=== PATIENT | female | born 1970 | race Caucasian/White ===

== ENCOUNTER 2017-06-20 10:17 | Emergency (ER) | payer OTHER ==
[2017-06-20 11:00] LABS: ABS Basophils 0.1 10^3/ul (0-0.2); ABS Eosinophils 0.6 10^3/ul (0-0.6); ABS Lymphocytes 2.1 10^3/ul (1.0-4.8); ABS Monocytes 0.5 10^3/ul (0-0.8); ABS Neutrophils 3.1 10^3/ul (1.5-7.7); ABS Nucleated RBC 0 10^3/ul; Hematocrit 41 % (35-47); Hemoglobin 14.1 g/dl (12.0-16.0); Lymphocyte % 32.7 % (25-47); Mean Corpuscular HGB Conc 34 g/dl (31-36); Mean Corpuscular Hemoglobin 29 pg (27-31); Mean Corpuscular Volume 85 fL (80-97); Mean Platelet Volume 7 um3 (7.4-10.4); Nucleated Red Blood Cells % 0; Platelet Count 309 10^3/ul (150-450); Red Blood Count 4.86 10^6/ul (4.0-5.4); Red Cell Distribution Width 13 % (10.5-15); White Blood Count 6.3 10^3/ul (3.5-10.8)
[2017-06-20 11:20] LABS: EGFR Non-African American 91.2 (>60)
--- NOTE | 2017-06-20 12:45 | RAD ---
INDICATION: Chest pain. COMPARISON: There are no prior studies available for comparison. TECHNIQUE: A portable view of the chest was obtained. FINDINGS: Cardiac and mediastinal contours appear to be within normal limits. The lungs are clear. No pneumothorax or pleural effusion is seen. IMPRESSION: NO EVIDENCE FOR ACUTE DISEASE.
[2017-06-20 15:12] VITALS: BP 125/72
--- NOTE | 2017-06-20 16:04 | ED ---
Gilma Proctor Thomas, scribed for Jesse Beltran MD on 06/20/17 at 1134 . HPI Chest Pain - HPI Summary HPI Summary: The patient is a 46 year old female complaining of constant left-sided chest pain that began 3 days ago. The patient notes numbness in her left arm that began a day ago. The patient additionally complains of episodes of nausea, diaphoresis, and wheezing. She has orthopnea. - History of Current Complaint Chief Complaint: EDChestPainROMI Time Seen by Provider: 06/20/17 10:38 Hx Obtained From: Patient Onset/Duration: Started Days Ago - started 3 days ago Timing: Constant Current Severity: Moderate Pain Intensity: 8 Pain Scale Used: 0-10 Numeric Chest Pain Location: Mid Sternal Chest Pain Radiates: Yes Chest Pain Radiates To:: Arm Aggravating Factor(s): Deep Breaths Alleviating Factor(s): Upright Position Associated Signs and Symptoms: Positive: Numbness - in left arm - Allergy/Home Medications Allergies/Adverse Reactions: Allergies Allergy/AdvReac Type Severity Reaction Status Date / Time No Known Allergies Allergy Verified 08/23/15 13:58 Home Medications: Home Medications NK [No Home Medications Reported] 06/20/17 [History Confirmed 06/20/17] PMH/Surg Hx/FS Hx/Imm Hx Sensory History: Denies: Hx Legally Blind EENT History: Denies: Hx Deafness Infectious Disease History: No Infectious Disease History: Denies: Traveled Outside the [place] in Last 30 Days - Family History Known Family History: Positive: Other - COPD - Social History Alcohol Use: None Substance Use Type: Reports: None Smoking Status (MU): Unknown if Ever Smoked Review of Systems Positive: Skin Diaphoresis Positive: Chest Pain Positive: Other - wheezing Positive: Nausea Positive: Numbness - in left arm All Other Systems Reviewed And Are Negative: Yes Physical Exam - Summary Physical Exam Summary: Appearance: The patient is well-nourished in no acute distress and in no acute pain. Skin: The skin is warm and dry and skin color reflects adequate perfusion. HEENT: ~The head is normocephalic and atraumatic. The pupils are equal and reactive. The conjunctivae are clear and without drainage. ~Nares are patent and without drainage. ~Mouth reveals moist mucous membranes and the throat is without erythema and exudate. ~The external ears are intact. The ear canals are patent and without drainage. The tympanic membranes are intact. Neck: the neck is supple with full range of motion and non-tender. There are no carotid bruits. ~There is no neck vein distension. Respiratory: Chest is non-tender. ~Lungs are clear to auscultation and breath sounds are symmetrical and equal. Cardiovascular: Heart is regular rate and rhythm. ~There is no murmur or rub auscultated. ~~There is no peripheral edema and pulses are symmetrical and equal. Abdomen: The abdomen is soft and non-tender. ~There are normal bowel sounds heard in all four quadrants and there is no organomegaly palpated. Musculoskeletal: There is no back tenderness noted. ~Extremities are non-tender with full range of motion. ~There is good capillary refill. ~There is no peripheral edema or calf tenderness elicited. Neurological: Patient is alert and oriented to person, place and time. ~The patient has symmetrical motor strength in all four extremities. ~Cranial nerves are grossly intact. Deep tendon reflexes are symmetrical and equal in all four extremities. Psychiatric: The patient has an appropriate affect and does not exhibit any anxiety or depression. Triage Information Reviewed: Yes Vital Signs On Initial Exam: Initial Vitals Temp Pulse Resp BP Pulse Ox 97.6 F 95 16 154/81 93 06/20/17 10:18 06/20/17 10:18 06/20/17 10:18 06/20/17 10:18 06/20/17 10:18 Vital Signs Reviewed: Yes Diagnostics - Vital Signs Vital Signs Temp Pulse Resp BP Pulse Ox 06/20/17 10:18 97.6 F 95 16 154/81 93 - Laboratory Lab Results: Lab Results 06/20/17 06/20/17 06/20/17 Range/Units 10:41 10:41 10:41 WBC 6.3 (3.5-10.8) 10^3/ul RBC 4.86 (4.0-5.4) 10^6/ul Hgb 14.1 (12.0-16.0) g/dl Hct 41 (35-47) % MCV 85 (80-97) fL MCH 29 (27-31) pg MCHC 34 (31-36) g/dl RDW 13 (10.5-15) % Plt Count 309 (150-450) 10^3/ul MPV 7 L (7.4-10.4) um3 Neut % (Auto) 49.3 (38-83) % Lymph % (Auto) 32.7 (25-47) % Boyd % (Auto) 7.6 (1-9) % Eos % (Auto) 9.0 H (0-6) % Baso % (Auto) 1.4 (0-2) % Absolute Neuts (auto) 3.1 (1.5-7.7) 10^3/ul Absolute Lymphs (auto) 2.1 (1.0-4.8) 10^3/ul Absolute Monos (auto) 0.5 (0-0.8) 10^3/ul Absolute Eos (auto) 0.6 (0-0.6) 10^3/ul Absolute Basos (auto) 0.1 (0-0.2) 10^3/ul Absolute Nucleated RBC 0 10^3/ul Nucleated RBC % 0 Sodium 136 (133-145) mmol/L Potassium 4.3 (3.5-5.0) mmol/L Chloride 102 (101-111) mmol/L Carbon Dioxide 28 (22-32) mmol/L Anion Gap 6 (2-11) mmol/L BUN 14 (6-24) mg/dL Creatinine 0.69 (0.51-0.95) mg/dL Est GFR ( Amer) 117.3 (>60) Est GFR (Non-Af Amer) 91.2 (>60) BUN/Creatinine Ratio 20.3 H (8-20) Glucose 102 H (70-100) mg/dL Lactic Acid 0.9 (0.5-2.0) mmol/L Calcium 9.8 (8.6-10.3) mg/dL Total Bilirubin 0.70 (0.2-1.0) mg/dL AST 14 (13-39) U/L ALT 15 (7-52) U/L Alkaline Phosphatase 66 (34-104) U/L Troponin I 0.00 (<0.04) ng/mL Total Protein 7.6 (6.4-8.9) g/dL Albumin 4.5 (3.2-5.2) g/dL Globulin 3.1 (2-4) g/dL Albumin/Globulin Ratio 1.5 (1-3) Result Diagrams: 06/20/17 10:41 06/20/17 10:41 Lab Statement: Any lab studies that have been ordered have been reviewed, and results considered in the medical decision making process. - Radiology CXR Xray Interpretation: No Acute Changes - NO EVIDENCE FOR ACUTE DISEASE. Dr. Beltran has reviewed this report. Radiology Interpretation Completed By: Radiologist - EKG 1021 Cardiac Rate: NL - at 81 bpm EKG Rhythm: Sinus Rhythm ST Segment: Non-Specific EKG Interpretation: Non specific diffuse ST changes Chest Pain Course/Dx - Course Course Of Treatment: Ms. Boles presents with an atypical chest pain that has been consistently present for at least one day and intermittently for three. Her W/U here including two troponins and a d-dimer was negative and her ecg OK. I'm not sure of the etiology but she is in no immediate danger and I recommended that she F/U closely with her PMD. - Diagnoses Provider Diagnoses: Chest pain Discharge - Discharge Plan Condition: Stable Disposition: HOME Patient Education Materials: Chest Pain (ED) Referrals: Kelin Hayden MD [Primary Care Provider] - 3 Days Additional Instructions: Follow up with your primary care physician in three days. Return to the emergency department for any new or worsening symptoms. The documentation as recorded by the Gilma lewis Thomas accurately reflects the service I personally performed and the decisions made by me, Jesse Beltran MD.
== END 2017-06-20 15:12 | disposition home or self-care (01) ==
LOC: ED 10:17
DX: R07.89 Other chest pain (principal)
CPT/HCPCS: 36415; 71045; 80053; 83605; 84484; 85025; 85379; 87502; 93005; 99283

== ENCOUNTER 2017-06-28 17:20 | Inpatient (IN) | payer OTHER ==
[2017-06-28] MEDS ORDERED: Albuterol/Ipratropium NEB.SOL* Albuterol 2.5 MG/Ipratropium 0.5 MG 3 ML ONE (17:43)
[2017-06-28] MEDS ORDERED: Vancomycin(*) 1,250 MG in NS 0.9% 250 ML* 250 ML IVPB ONE (18:52)
[2017-06-28] MEDS ORDERED: Piperacillin/Tazobac ADVAN(*) 3.375 GM in NS 0.9% 100 ML* 100 ML IVPB ONE (18:52)
[2017-06-28] MEDS ORDERED: methylPREDNISolone 125 MG* 2 ML VIAL IV ONE (18:59)
[2017-06-28] MEDS ORDERED: Albuterol/Ipratropium NEB.SOL* Albuterol 2.5 MG/Ipratropium 0.5 MG 3 ML INH ONE ×3 (18:59→22:05)
[2017-06-28 19:31] LABS: ABS Basophils 0.1 10^3/ul (0-0.2); ABS Eosinophils 0.8 10^3/ul (0-0.6); ABS Lymphocytes 2.6 10^3/ul (1.0-4.8); ABS Monocytes 0.6 10^3/ul (0-0.8); ABS Neutrophils 3.5 10^3/ul (1.5-7.7); ABS Nucleated RBC 0 10^3/ul; Eosinophil % 10.7 % (0-6); Hematocrit 39 % (35-47); Hemoglobin 13.5 g/dl (12.0-16.0); Lymphocyte % 34.1 % (25-47); Mean Corpuscular HGB Conc 34 g/dl (31-36); Mean Corpuscular Hemoglobin 29 pg (27-31); Mean Corpuscular Volume 85 fL (80-97); Mean Platelet Volume 7 um3 (7.4-10.4); Nucleated Red Blood Cells % 0.1; Platelet Count 299 10^3/ul (150-450); Red Blood Count 4.63 10^6/ul (4.0-5.4); Red Cell Distribution Width 13 % (10.5-15); White Blood Count 7.6 10^3/ul (3.5-10.8)
[2017-06-28 19:51] LABS: EGFR Non-African American 74.7 (>60)
--- NOTE | 2017-06-28 20:24 | RAD ---
INDICATION: Chest pain, shortness of breath. COMPARISON: June 20, 2017 TECHNIQUE: Dual energy PA and routine lateral views of the chest were obtained. REPORT: Elevated lung volumes and both diffuse mild prominence of the interstitial markings and patchy rarefaction of the mid to upper lung zone interstitial markings. No focal pulmonary lesion, compelling alveolar consolidation, pleural effusion, pneumothorax. The heart, pulmonary vasculature, and mediastinal contours are unremarkable. IMPRESSION: Stigmata of obstructive lung disease. No acute pulmonary or cardiac process evident.
[2017-06-28] MEDS ORDERED: Iohexol 300* (CONTRAST) 10 ML SDV IV ONE (20:46)
--- NOTE | 2017-06-28 21:21 | RAD ---
INDICATION: Wheezing and shortness of breath. Aspirated a pill a few weeks ago. COMPARISON: June 28, 2017 radiographs. TECHNIQUE: Multidetector CT images were obtained from the lung apices to the upper abdomen with 80 mL Omnipaque 300 IV contrast. Multiplanar reformation. REPORT: Advanced emphysema most marked at the upper lung zones. No focal pulmonary lesion, alveolar consolidation, or focal air trapping evident. No conspicuous central endobronchial foreign body evident. Negative for pleural effusion or pneumothorax. Negative for thoracic lymphadenopathy, cardiomegaly, pericardial effusion. Normal diameter thoracic aorta. Negative for aortic dissection. Unremarkable limited images through the upper abdomen. Negative for thoracic fracture or suspicious focal osseous lesions. IMPRESSION: 1. Advanced emphysema. 2. No conspicuous central endobronchial foreign body, evidence for focal air trapping, or pneumonia.
--- NOTE | 2017-06-28 23:51 | HP ---
H&P (Free Text) History and Physical: PCP: Sari Hayden MD Date/Time: 06/28/2017 2350 CC: SOB HPI: Ms Boles is a 46YO female without chronic diagnoses who presents with onset of SOB ~10days ago a couple of days after aspirating an herbal supplement pill which she was mostly able to cough up. The SOB began to significantly accelerate 2 days ago. She has had audible wheezing, dry cough, chest tightngess , and mild sweats, but no F/C, chest pain, palpitations, N/V, diarrhea, or other issue. Steam/moist heat has helped briefly. She states she has always had a degree of SOB with exertion all the way back to school when she could not keep up with other children due to becoming "winded". She is a former smoker having quit ~10years ago. She was exposed to significant 2nd hand smoke by both parents. ED evaluation is most significant for a CT of the chest read as advanced emphysema far out of proportion to her degree of smoking/2nd hand- exposure giving rise to significant concern for previously undiagnosed alpha-1- antitrypsin deficiency. 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; full code status FamHx: Mother: alive at 76 w/ COPD & breast CA; Father: in his 60s 2nd COPD & alcoholism; Sisters x3: healthy; Brothers x2: healthy ROS: as above, otherwise reviewed and all were negative vitals: Vital Signs Temp 36.7 C 06/29/17 08:09 Pulse 96 06/29/17 08:09 Resp 14 06/29/17 08:09 BP 108/60 06/29/17 08:09 Pulse Ox 94 06/29/17 08:09 Constitutional: NAD, normally developed, overweight white female HEENM: atraumatic; sclera/conjunctiva: anicteric/clear; hearing: clinically intact; oropharynx: clear, mucosa moist Neck: soft tissue: non-tender; thyroid: normal Pulmonary: diminished B w/ scant mid- to end-expiratory wheeze, fair aeration, no accessory muscle use CV: RR/RR, normal S1S2, no carotid bruit, no jugular venous distention, 2+ B DP/ PT, no edema Abdominal: soft, non-distended, non-tender, no rebound/guarding/rigidity, normoactive bowel sounds, no hepatosplenomegaly or masses, no costovertebral angle tenderness Musculoskeletal: general: grossly intact, no tenderness to palpation; gait: stable Integumental: normal appearance and texture of exposed skin Psychiatric orientation: AA&O to PPS affect: calm mood: cooperative/pleasant eye contact: good content: reliable responses: timely insight: good Testing: Lab Results 06/28/17 06/28/17 06/28/17 Range/Units 19:00 19:00 19:00 WBC 7.6 (3.5-10.8) 10^3/ul RBC 4.63 (4.0-5.4) 10^6/ul Hgb 13.5 (12.0-16.0) g/dl Hct 39 (35-47) % MCV 85 (80-97) fL MCH 29 (27-31) pg MCHC 34 (31-36) g/dl RDW 13 (10.5-15) % Plt Count 299 (150-450) 10^3/ul MPV 7 L (7.4-10.4) um3 Neut % (Auto) 45.9 (38-83) % Lymph % (Auto) 34.1 (25-47) % Wilkin % (Auto) 7.9 H (0-7) % Eos % (Auto) 10.7 H (0-6) % Baso % (Auto) 1.4 (0-2) % Absolute Neuts (auto) 3.5 (1.5-7.7) 10^3/ul Absolute Lymphs (auto) 2.6 (1.0-4.8) 10^3/ul Absolute Monos (auto) 0.6 (0-0.8) 10^3/ul Absolute Eos (auto) 0.8 H (0-0.6) 10^3/ul Absolute Basos (auto) 0.1 (0-0.2) 10^3/ul Absolute Nucleated RBC 0 10^3/ul Nucleated RBC % 0.1 Sodium 138 (133-145) mmol/L Potassium 4.0 (3.5-5.0) mmol/L Chloride 101 (101-111) mmol/L Carbon Dioxide 29 (22-32) mmol/L Anion Gap 8 (2-11) mmol/L BUN 17 (6-24) mg/dL Creatinine 0.82 (0.51-0.95) mg/dL Est GFR ( Amer) 96.1 (>60) Est GFR (Non-Af Amer) 74.7 (>60) BUN/Creatinine Ratio 20.7 H (8-20) Glucose 94 (70-100) mg/dL Lactic Acid 1.3 (0.5-2.0) mmol/L Calcium 10.1 (8.6-10.3) mg/dL Total Bilirubin 0.50 (0.2-1.0) mg/dL AST 18 (13-39) U/L ALT 16 (7-52) U/L Alkaline Phosphatase 68 (34-104) U/L Troponin I 0.00 (<0.04) ng/mL B-Natriuretic Peptide ( - 100) pg/mL Total Protein 7.6 (6.4-8.9) g/dL Albumin 4.6 (3.2-5.2) g/dL Globulin 3.0 (2-4) g/dL Albumin/Globulin Ratio 1.5 (1-3) 06/28/17 06/28/17 06/29/17 Range/Units 19:00 21:55 07:02 WBC (3.5-10.8) 10^3/ul RBC (4.0-5.4) 10^6/ul Hgb (12.0-16.0) g/dl Hct (35-47) % MCV (80-97) fL MCH (27-31) pg MCHC (31-36) g/dl RDW (10.5-15) % Plt Count (150-450) 10^3/ul MPV (7.4-10.4) um3 Neut % (Auto) (38-83) % Lymph % (Auto) (25-47) % Wilkin % (Auto) (0-7) % Eos % (Auto) (0-6) % Baso % (Auto) (0-2) % Absolute Neuts (auto) (1.5-7.7) 10^3/ul Absolute Lymphs (auto) (1.0-4.8) 10^3/ul Absolute Monos (auto) (0-0.8) 10^3/ul Absolute Eos (auto) (0-0.6) 10^3/ul Absolute Basos (auto) (0-0.2) 10^3/ul Absolute Nucleated RBC 10^3/ul Nucleated RBC % Sodium (133-145) mmol/L Potassium (3.5-5.0) mmol/L Chloride (101-111) mmol/L Carbon Dioxide (22-32) mmol/L Anion Gap (2-11) mmol/L BUN (6-24) mg/dL Creatinine (0.51-0.95) mg/dL Est GFR ( Amer) (>60) Est GFR (Non-Af Amer) (>60) BUN/Creatinine Ratio (8-20) Glucose (70-100) mg/dL Lactic Acid (0.5-2.0) mmol/L Calcium (8.6-10.3) mg/dL Total Bilirubin (0.2-1.0) mg/dL AST (13-39) U/L ALT (7-52) U/L Alkaline Phosphatase (34-104) U/L Troponin I 0.00 0.00 (<0.04) ng/mL B-Natriuretic Peptide 7 ( - 100) pg/mL Total Protein (6.4-8.9) g/dL Albumin (3.2-5.2) g/dL Globulin (2-4) g/dL Albumin/Globulin Ratio (1-3) ECG, personally reviewed: NSR rate 87, no ischemia CXR, personally reviewed: IMPRESSION: Stigmata of obstructive lung disease. No acute pulmonary or cardiac process evident. CT chest WO, personally reviewed: IMPRESSION: 1. Advanced emphysema. 2. No conspicuous central endobronchial foreign body, evidence for focal air trapping, or pneumonia. Impression: 46F presenting with COPD exacerbation and finding of advanced emphysema far out of proportion to her smoking exposure giving rise to previously undiagnosed [id number] deficiency DIAGNOSIS & PLAN Primary COPD exacerbation w/ advanced emphysema, suspect [id number] deficiency : albuterol nebs Q4H routine, Q2H PRN : mometasone/formoterol : tiotropium : IV methylprednisolone : check AAT & phenotype : recommend pulmonology consult in the AM : supplemental oxygen : supportive care Admission Rational: inpatient for COPD exacerbation not likely to be adequately controlled w/i 48H to allow for discharge DVTp: INDRA Code Status: full
[2017-06-29] MEDS ORDERED: CMCS: Melatonin (NF) 3 MG TAB PO PRN (00:09)
[2017-06-29] MEDS ORDERED: Albuterol 2.5 MG/3 ML NEB.SOL* (0.083%) INH PRN (00:09)
[2017-06-29] MEDS ORDERED: Ondansetron INJ* 2 MG/ML VIAL IV PRN (00:10)
[2017-06-29] MEDS: Mometasone/Formoter 200/5 MDI INH SCH ×3 (00:28→20:12)
[2017-06-29] MEDS: Albuterol 2.5 MG/3 ML NEB.SOL* (0.083%) INH SCH ×6 (01:22→20:12)
[2017-06-29] MEDS: Omeprazole CAP* 20 MG PO SCH ×2 (05:22→11:36)
[2017-06-29] MEDS ORDERED: Spiriva Inhaler DEVICE* 1 EACH DEVICE INH ONE (09:00)
[2017-06-29] MEDS: Tiotropium CAP.INH* CAP.INH/18 MCG (USE ORDER SET !) INH SCH (09:45)
--- NOTE | 2017-06-29 11:24 | PN ---
Subjective Date of Service: 06/29/17 Interval History: Patient seen and examined. C/O cough, somewhat productive, no acute SOB at present. Denies chest pain, fever or chills. Objective Active Medications: Albuterol (Ventolin 2.5 Mg/3 Ml Neb.Yolanda*) 2.5 mg INH Q2H PRN PRN Reason: SOB/WHEEZING Albuterol (Ventolin 2.5 Mg/3 Ml Neb.Yolanda*) 2.5 mg INH Q4H [facility] Last Admin: 06/29/17 09:41 Dose: 2.5 mg Levofloxacin/Dextrose (Levaquin 500 Mg Ivpremix(*)) 500 mg in 100 mls @ 100 mls /hr IVPB Q24H [facility] Melatonin (Melatonin (Nf)) 3 mg PO BEDTIME PRN; Protocol PRN Reason: Sleep Methylprednisolone Sodium Succinate (Solu-Medrol 40 Mg) 40 mg IV Q8H [facility] Mometasone Furoate/Formoterol Fumar (Dulera 200/5 Mdi*) 2 puff INH BID [facility] Last Admin: 06/29/17 09:41 Dose: 2 puff Omeprazole (Prilosec Cap*) 20 mg PO DAILY@0600 [facility] Last Admin: 06/29/17 05:22 Dose: Not Given Ondansetron HCl (Zofran Inj*) 4 mg IV Q6H PRN PRN Reason: NAUSEA Tiotropium Hilger (Spiriva Cap.Inh*) 1 cap INH DAILY [facility] Last Admin: 06/29/17 09:45 Dose: 1 cap.inh Vital Signs - 8 hr 06/29/17 06/29/17 06/29/17 03:54 04:52 08:00 Temperature 97.7 F Pulse Rate 107 104 Respiratory 20 18 18 Rate Blood Pressure 101/44 (mmHg) O2 Sat by Pulse 94 99 Oximetry 06/29/17 08:09 Temperature 98.1 F Pulse Rate 96 Respiratory 14 Rate Blood Pressure 108/60 (mmHg) O2 Sat by Pulse 94 Oximetry Oxygen Devices in Use Now: None Appearance: Alert, NAD Eyes: No Scleral Icterus, PERRLA Ears/Nose/Mouth/Throat: NL Teeth, Lips, Gums, Mucous Membranes Moist Neck: NL Appearance and Movements; NL JVP, Trachea Midline Respiratory: Symmetrical Chest Expansion and Respiratory Effort, - - expiratory wheeze, some course breath sounds throughout, no consolidation Abdominal: NL Sounds; No Tenderness; No Distention Extremities: No Edema, No Clubbing, Cyanosis Skin: No Rash or Ulcers Neurological: Alert and Oriented x 3, NL Gait Nutrition: Taking PO's Result Diagrams: 06/28/17 19:00 06/28/17 19:00 Diagnostic Imaging: Patient Name: COLE TAMAYO Medical Record#: [id number] Ordering Physician: Kenneth Acuña MD Acct.#: [id number] : 1970 Age: 46 Sex: F Location: EMERGENCY DEPARTMENT Exam Date: 06/28/172032 ADM Status: REG ER Order Information: CT CHEST W Accession Number: [id number] CPT: 53364 INDICATION: Wheezing and shortness of breath. Aspirated a pill a few weeks ago. COMPARISON: June 28, 2017 radiographs. TECHNIQUE: Multidetector CT images were obtained from the lung apices to the upper abdomen with 80 mL Omnipaque 300 IV contrast. Multiplanar reformation. REPORT: Advanced emphysema most marked at the upper lung zones. No focal pulmonary lesion, alveolar consolidation, or focal air trapping evident. No conspicuous central endobronchial foreign body evident. Negative for pleural effusion or pneumothorax. Negative for thoracic lymphadenopathy, cardiomegaly, pericardial effusion. Normal diameter thoracic aorta. Negative for aortic dissection. Unremarkable limited images through the upper abdomen. Negative for thoracic fracture or suspicious focal osseous lesions. IMPRESSION: 1. Advanced emphysema. 2. No conspicuous central endobronchial foreign body, evidence for focal air trapping, or pneumonia. <Electronically signed by Estrada Lynch MD in OV> 06/28/172117 Dictated By: Estrada Lynch MD Dictated Date/Time: 06/28/172117 Transcribed Date/Time: 06/28/172111 Copy to: Assess/Plan/Problems-Billing Assessment: This is a 47 year old female patient with hx of progressive dyspnea, with findings positive for emphysema on CT, possibly r/o AAT deficiency. - Patient Problems (1) Shortness of breath Code(s): R06.02 - SHORTNESS OF BREATH SNOMED Code(s): 035040616 Comment: - COPD vs AAT deficiency causing emphesema - Will treat clinically for COPD with nebs, dulera, IV solumedrol, levaquin and spiriva - Dr. Scanlon consulted - Follow AAT testing (2) DVT prophylaxis Code(s): ENP7221 - SNOMED Code(s): 653656441 Comment: - low risk/ambulatory (3) Full code status Code(s): Z78.9 - OTHER SPECIFIED HEALTH STATUS SNOMED Code(s): 057233749 Status and Disposition: remain inpatient Counseling and/or Coordination of Care Minutes: coordinated with Dr. Scanlon
[2017-06-29] MEDS: Levofloxacin 500 MG IVPREMIX(* 500 MG/100 ML BAG IVPB SCH (12:30)
[2017-06-29] MEDS ORDERED: Melatonin (NF) ** ENTER STRENGTH IN LABEL DIRECTIONS PO SCH (21:00)
[2017-06-29] MEDS: CMCS: Melatonin (NF) 3 MG TAB PO SCH (21:24)
--- NOTE | 2017-06-29 21:57 | CONS ---
PULMONARY CONSULTATION REPORT: DATE OF CONSULT: 06/29/17 CONSULTATION REQUESTED BY: Angle Ferreira NP REASON FOR CONSULTATION: Evaluation of chronic obstructive pulmonary disease/ emphysema. HISTORY OF PRESENT ILLNESS: The patient is a 46-year-old female, former smoker , with no other significant past medical history who presents for evaluation of worsening shortness of breath over the past 10 days. The patient reports having mild shortness of breath on exertion for a very long time. She usually is limited walking up hill and working bending down. The patient reports that she aspirated on a herbal supplement pill recently, was able to cough up the pill. Her shortness of breath has worsened since that time. The patient also reports that she developed audible wheezing and chest tightness. The patient reports history of episodes of wheezing in the past. Denies GERD symptoms. The patient also reports dizziness associated with exertion. The patient denies chronic cough or sputum production. Has been having dry cough associated with sweats recently. Denies chest pain, palpitations, nausea, vomiting, diarrhea, urinary complaints, headaches, neck stiffness, recent travel or sick contacts. The patient also reported snoring, disruptive sleep, gasping arousals, and daytime fatigue. 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 Was former smoker, quit 10 years ago. Reports significant secondhand smoke exposure when she was young. 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 She also had a wood stove that she got rid of 2 years ago. The patient reports history of COPD and emphysema in the family. The patient is not aware of known history of liver problems. The patient was found to be significantly dyspneic upon evaluation in the emergency room, was also noted to be having significant wheezing on auscultation. She was admitted for management of acute bronchitis/COPD exacerbation. The patient had a chest x-ray and CT of the chest for further evaluation. I have personally reviewed chest x-ray and CT of the chest. The patient noted to have evidence of hyperinflation on chest x-ray. CT scan of the chest did reveal evidence of significant emphysematous changes bilaterally predominantly in the upper lung zones. No significant mediastinal or hilar adenopathy was noted. No evidence of pleural effusions was noted. No suspicious nodules or masses were noted. The patient was initiated on bronchodilators and steroids. The patient was also started on antibiotics for possible bronchitis. The patient reports slight improvement in shortness of breath. She, however, has been significantly dyspneic with minimal movements . She has not been hypoxemic and not required O2 supplementation. PAST MEDICAL HISTORY: No known past medical history, denied recurrent bronchitis or prior diagnosis of COPD. PAST SURGICAL HISTORY: Tonsillectomy, endometrial ablation, tubal ligation. MEDICATIONS: At home, the patient takes herbal supplements and vitamin supplements. ALLERGIES: No known drug allergies. FAMILY HISTORY: Mother alive at 76 with COPD and breast cancer. Father in 60s secondary to COPD and alcoholism. Sisters and 2 brothers are healthy. SOCIAL HISTORY: Former smoker, quit 10 years ago. No alcohol or recreational drug abuse. The patient denies significant smoking, 1 pack cigarette would last about a week. The patient, however, has significant secondhand smoke exposure. 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 REVIEW OF SYSTEMS: All 14 systems reviewed and as per HPI. PHYSICAL EXAM: Vital Signs: Temperature 98, pulse 97 beats per minute, respiratory rate 18, O2 sat 95% on room air, blood pressure 113/64. HEENT: Pupils equal, reactive to light. Mucous membranes moist. Lungs: Significant expiratory wheeze present bilaterally, diminished air entry bilaterally. No accessory respiratory muscle usage. Cardiovascular: S1 and S2 present, regular. Abdomen: Soft, nontender, nondistended. Bowel sounds present. Extremities: Normal range of motion. No edema. Skin: No rash or bruits. Neuro: No focal deficits. Lymphatic: No palpable cervical or supraclavicular adenopathy. DIAGNOSTIC STUDIES/LABORATORY DATA: WBC 7.6, hemoglobin 13.5, hematocrit 39, platelet count 299. Sodium 138, potassium 4.0, chloride 101, bicarb 29, BUN 17 , creatinine 0.8. Lactic acid 1.3. Troponin x3 within normal limits, LFTs within normal limits. CT scan of the chest as described above in HPI. EKG on admission showed evidence of normal sinus rhythm without any ST-T wave abnormalities. IMPRESSION AND RECOMMENDATIONS: 46-year-old female, former smoker, with chronic shortness of breath on exertion, admitted with worsening shortness of breath after an episode of choking while taking a pill, being treated for acute chronic obstructive pulmonary disease exacerbation/bronchitis. The patient with significant wheezing on auscultation. Agree with current management with IV steroids and empiric antibiotics. Continue with bronchodilators q.2 hours p.r.n. The patient was initiated on long-acting bronchodilators. She does have significant emphysematous changes on CT. Given more predominance in upper lung zones, likely secondary to the smoking and secondhand smoke exposure; however, we will check alpha-1 to ensure she does not have alpha-1 deficiency given significant emphysematous changes at early age. Chronic dyspnea on exertion secondary to smoking status. Will need PFTs and sleep study as outpatient. Continue with steroid taper once clinically improved. Thank you for allowing me to participate in the care of your patient. Will follow up with you. [id number]/[facility] #: [id number] [place]
[2017-06-30] MEDS: Albuterol 2.5 MG/3 ML NEB.SOL* (0.083%) INH SCH ×6 (00:55→20:25)
[2017-06-30] MEDS: Omeprazole CAP* 20 MG PO SCH (06:09)
[2017-06-30] MEDS: methylPREDNISolone SOD 40 MG* 1 ML VIAL IV SCH ×3 (06:09→21:52)
--- NOTE | 2017-06-30 08:25 | PN ---
Progress Note - Progress Note Date of Service: 06/30/17 - Pulm f/u note Note: Pt seen and examined at bedside. Reports feeling slightly better. C/o cough, having difficulty expectorating phleghm. Still feels tightness in chest Active Medications Generic Name Dose Route Start Last Admin Trade Name Freq PRN Reason Stop Dose Admin Albuterol 2.5 mg 06/29/17 00:09 Ventolin 2.5 Mg/3 Ml Neb.Yolanda* INH Q2H PRN SOB/WHEEZING Albuterol 2.5 mg 06/29/17 01:00 06/30/17 06:15 Ventolin 2.5 Mg/3 Ml Neb.Yolanda* INH Not Given Q4H [facility] Levofloxacin/Dextrose 500 mg in 100 mls @ 100 mls/hr 06/29/17 12:00 06/29/17 12:30 Levaquin 500 Mg Ivpremix(*) IVPB 100 mls/hr Q24H [facility] Administration Melatonin 3 mg 06/29/17 21:00 06/29/17 21:24 Melatonin (Nf) PO 3 mg BEDTIME [facility] Administration Protocol Methylprednisolone Sodium Succinate 40 mg 06/30/17 06:00 06/30/17 06:09 Solu-Medrol 40 Mg IV 40 mg Q8H [facility] Administration Mometasone Furoate/Formoterol Fumar 2 puff 06/29/17 01:00 06/29/17 20:12 Dulera 200/5 Mdi* INH 2 puff BID [facility] Administration Omeprazole 20 mg 06/29/17 06:00 06/30/17 06:09 Prilosec Cap* PO 20 mg DAILY@0600 [facility] Administration Ondansetron HCl 4 mg 06/29/17 00:10 Zofran Inj* IV Q6H PRN NAUSEA Tiotropium [place] 1 cap 06/29/17 09:00 06/29/17 09:45 Spiriva Cap.Inh* INH 1 cap.inh DAILY [facility] Administration Vital Signs Temp Pulse Resp BP Pulse Ox 97.6 F 78 16 112/68 95 06/30/17 07:36 06/30/17 07:36 06/30/17 07:36 06/30/17 07:36 06/30/17 07:36 O/E: Pt in NAD, alert, awake HEENT: PERRLA, No JVD Lungs: Wheeze + b/l, prolonged expectorated phase CVS: S1, S2+, regular Abd: Soft, BS+ Ext: No edema, normal ROM Neuro: No focal defecits Skin: Petechial rash, pt reports flee bites 06/28/17 06/28/17 06/28/17 19:00 19:00 19:00 WBC 7.6 RBC 4.63 Hgb 13.5 Hct 39 MCV 85 MCH 29 MCHC 34 RDW 13 Plt Count 299 MPV 7 L Neut % (Auto) 45.9 Lymph % (Auto) 34.1 [place] % (Auto) 7.9 H Eos % (Auto) 10.7 H Baso % (Auto) 1.4 Absolute Neuts (auto) 3.5 Absolute Lymphs (auto) 2.6 Absolute Monos (auto) 0.6 Absolute Eos (auto) 0.8 H Absolute Basos (auto) 0.1 Absolute Nucleated RBC 0 Nucleated RBC % 0.1 Sodium 138 Potassium 4.0 Chloride 101 Carbon Dioxide 29 Anion Gap 8 BUN 17 Creatinine 0.82 Est GFR ( Amer) 96.1 Est GFR (Non-Af Amer) 74.7 BUN/Creatinine Ratio 20.7 H Glucose 94 Lactic Acid 1.3 Calcium 10.1 Total Bilirubin 0.50 AST 18 ALT 16 Alkaline Phosphatase 68 Troponin I 0.00 B-Natriuretic Peptide Total Protein 7.6 Albumin 4.6 Globulin 3.0 Albumin/Globulin Ratio 1.5 06/28/17 06/28/17 06/29/17 19:00 21:55 07:02 WBC RBC Hgb Hct MCV MCH MCHC RDW Plt Count MPV Neut % (Auto) Lymph % (Auto) [place] % (Auto) Eos % (Auto) Baso % (Auto) Absolute Neuts (auto) Absolute Lymphs (auto) Absolute Monos (auto) Absolute Eos (auto) Absolute Basos (auto) Absolute Nucleated RBC Nucleated RBC % Sodium Potassium Chloride Carbon Dioxide Anion Gap BUN Creatinine Est GFR ( Amer) Est GFR (Non-Af Amer) BUN/Creatinine Ratio Glucose Lactic Acid Calcium Total Bilirubin AST ALT Alkaline Phosphatase Troponin I 0.00 0.00 B-Natriuretic Peptide 7 Total Protein Albumin Globulin Albumin/Globulin Ratio I/R: 46 y o f former smoker with second hand smoking history a/w worsening SOB, cough Acute bronchitis Significant emphysema on CT chest Pt improving slowly, still with wheeze Will c/w current dose of steroids Having thick phleghm- will order saline nebs c/w bronchodilators c/w Levaquin to complete 7 day course Not needing O2 at rest OOB to chair, ambulate as tolerated
[2017-06-30] MEDS: Sodium Chloride(INHALANT) 7%* 4 ML NEB.SOLN INH SCH ×2 (08:47→20:29)
[2017-06-30] MEDS: Tiotropium CAP.INH* CAP.INH/18 MCG (USE ORDER SET !) INH SCH (08:53)
[2017-06-30] MEDS: Mometasone/Formoter 200/5 MDI INH SCH ×2 (08:53→20:37)
[2017-06-30] MEDS: Levofloxacin 500 MG IVPREMIX(* 500 MG/100 ML BAG IVPB SCH (12:37)
--- NOTE | 2017-06-30 12:50 | PN ---
Subjective Date of Service: 06/30/17 Interval History: Patient seen and examined. Still with wheeze and SOB intermittently, but overall improving. Gets anxious when she feels like she can't breathe. Denies chest pain, no n/v, denies fever or chills. Objective Active Medications: Albuterol (Ventolin 2.5 Mg/3 Ml Neb.Yolanda*) 2.5 mg INH Q2H PRN PRN Reason: SOB/WHEEZING Albuterol (Ventolin 2.5 Mg/3 Ml Neb.Yolanda*) 2.5 mg INH Q4H [facility] Last Admin: 06/30/17 08:47 Dose: 2.5 mg Levofloxacin/Dextrose (Levaquin 500 Mg Ivpremix(*)) 500 mg in 100 mls @ 100 mls /hr IVPB Q24H [facility] Last Admin: 06/30/17 12:37 Dose: 100 mls/hr Melatonin (Melatonin (Nf)) 3 mg PO BEDTIME [facility] PRN Reason: Protocol Last Admin: 06/29/17 21:24 Dose: 3 mg Methylprednisolone Sodium Succinate (Solu-Medrol 40 Mg) 40 mg IV Q8H [facility] Last Admin: 06/30/17 06:09 Dose: 40 mg Mometasone Furoate/Formoterol Fumar (Dulera 200/5 Mdi*) 2 puff INH BID [facility] Last Admin: 06/30/17 08:53 Dose: 2 puff Omeprazole (Prilosec Cap*) 20 mg PO DAILY@0600 [facility] Last Admin: 06/30/17 06:09 Dose: 20 mg Ondansetron HCl (Zofran Inj*) 4 mg IV Q6H PRN PRN Reason: NAUSEA Sodium Chloride (Hyper-Shayne 7%*) 4 ml INH Q12HR [facility] Last Admin: 06/30/17 08:47 Dose: 4 ml Tiotropium [place] (Spiriva Cap.Inh*) 1 cap INH DAILY [facility] Last Admin: 06/30/17 08:53 Dose: 1 cap.inh Vital Signs - 8 hr 06/30/17 06/30/17 06/30/17 07:14 07:36 08:56 Temperature 97.6 F Pulse Rate 78 81 Respiratory 18 16 16 Rate Blood Pressure 112/68 (mmHg) O2 Sat by Pulse 95 92 Oximetry Oxygen Devices in Use Now: None Appearance: Alert, NAD Eyes: No Scleral Icterus, PERRLA Ears/Nose/Mouth/Throat: NL Teeth, Lips, Gums, Mucous Membranes Moist Neck: NL Appearance and Movements; NL JVP, Trachea Midline Respiratory: Symmetrical Chest Expansion and Respiratory Effort - bilateral insp /exp wheeze, no rhonchi or rales Cardiovascular: NL Sounds; No Murmurs; No JVD, RRR, No Edema Abdominal: NL Sounds; No Tenderness; No Distention Extremities: No Edema, No Clubbing, Cyanosis Neurological: Alert and Oriented x 3, NL Gait, NL Muscle Strength and Tone Nutrition: Taking PO's Result Diagrams: 06/28/17 19:00 06/28/17 19:00 Diagnostic Imaging: Patient Name: COLE TAMAYO Medical Record#: [id number] Ordering Physician: Kenneth Acuña MD Acct.#: [id number] : 1970 Age: 46 Sex: F Location: EMERGENCY DEPARTMENT Exam Date: 06/28/172032 ADM Status: REG ER Order Information: CT CHEST W Accession Number: [id number] CPT: 04312 INDICATION: Wheezing and shortness of breath. Aspirated a pill a few weeks ago. COMPARISON: June 28, 2017 radiographs. TECHNIQUE: Multidetector CT images were obtained from the lung apices to the upper abdomen with 80 mL Omnipaque 300 IV contrast. Multiplanar reformation. REPORT: Advanced emphysema most marked at the upper lung zones. No focal pulmonary lesion, alveolar consolidation, or focal air trapping evident. No conspicuous central endobronchial foreign body evident. Negative for pleural effusion or pneumothorax. Negative for thoracic lymphadenopathy, cardiomegaly, pericardial effusion. Normal diameter thoracic aorta. Negative for aortic dissection. Unremarkable limited images through the upper abdomen. Negative for thoracic fracture or suspicious focal osseous lesions. IMPRESSION: 1. Advanced emphysema. 2. No conspicuous central endobronchial foreign body, evidence for focal air trapping, or pneumonia. <Electronically signed by Estrada Lynch MD in [place]> 06/28/172117 Dictated By: Estrada Lynch MD Dictated Date/Time: 06/28/172117 Transcribed Date/Time: 06/28/172111 Copy to: Assess/Plan/Problems-Billing Assessment: This is a 47 year old female patient with hx of progressive dyspnea, with findings positive for emphysema on CT, possibly r/o AAT deficiency. - Patient Problems (1) Shortness of breath Code(s): R06.02 - SHORTNESS OF BREATH SNOMED Code(s): 992185776 Comment: - COPD vs AAT deficiency causing emphesema - Continue to treat for COPD with nebs, dulera, IV solumedrol, levaquin and spiriva at current doses - Dr. Scanlon following - Follow AAT testing (2) DVT prophylaxis Code(s): IEQ3335 - SNOMED Code(s): 189354532 Comment: - low risk/ambulatory (3) Full code status Code(s): Z78.9 - OTHER SPECIFIED HEALTH STATUS SNOMED Code(s): 683546756 Status and Disposition: remain inpatient for IV steroids. Likely DC Tuesday
[2017-06-30] MEDS: CMCS: Melatonin (NF) 3 MG TAB PO SCH (21:52)
[2017-07-01] MEDS: Albuterol 2.5 MG/3 ML NEB.SOL* (0.083%) INH SCH ×7 (01:04→19:38)
[2017-07-01] MEDS: Omeprazole CAP* 20 MG PO SCH (05:58)
[2017-07-01] MEDS: methylPREDNISolone SOD 40 MG* 1 ML VIAL IV SCH ×3 (05:58→21:00)
[2017-07-01] MEDS: Sodium Chloride(INHALANT) 7%* 4 ML NEB.SOLN INH SCH ×2 (09:33→19:38)
[2017-07-01] MEDS: Tiotropium CAP.INH* CAP.INH/18 MCG (USE ORDER SET !) INH SCH (09:35)
[2017-07-01] MEDS: Mometasone/Formoter 200/5 MDI INH SCH ×2 (09:36→19:38)
[2017-07-01 09:45] LABS: ABS Basophils 0 10^3/ul (0-0.2); ABS Eosinophils 0 10^3/ul (0-0.6); ABS Lymphocytes 1.1 10^3/ul (1.0-4.8); ABS Monocytes 0.2 10^3/ul (0-0.8); ABS Neutrophils 14.4 10^3/ul (1.5-7.7); ABS Nucleated RBC 0 10^3/ul; Eosinophil % 0 % (0-6); Hematocrit 40 % (35-47); Hemoglobin 13.7 g/dl (12.0-16.0); Lymphocyte % 7.2 % (25-47); Mean Corpuscular HGB Conc 34 g/dl (31-36); Mean Corpuscular Hemoglobin 29 pg (27-31); Mean Corpuscular Volume 85 fL (80-97); Mean Platelet Volume 7 um3 (7.4-10.4); Nucleated Red Blood Cells % 0.1; Platelet Count 322 10^3/ul (150-450); Red Blood Count 4.74 10^6/ul (4.0-5.4); Red Cell Distribution Width 14 % (10.5-15); White Blood Count 15.8 10^3/ul (3.5-10.8)
[2017-07-01 09:58] LABS: EGFR Non-African American 80.4 (>60)
--- NOTE | 2017-07-01 09:59 | PN ---
Subjective Date of Service: 07/01/17 Interval History: Patient seen and examined. Feels wheezy and tight this AM, currently having neb treatment with resp therapy. No acute overnight events. Has some sputum, small amount and thick. Continues with cough. Objective Active Medications: Albuterol (Ventolin 2.5 Mg/3 Ml Neb.Yolanda*) 2.5 mg INH Q2H PRN PRN Reason: SOB/WHEEZING Albuterol (Ventolin 2.5 Mg/3 Ml Neb.Yolanda*) 2.5 mg INH Q4H [facility] Last Admin: 07/01/17 09:32 Dose: 2.5 mg Levofloxacin/Dextrose (Levaquin 500 Mg Ivpremix(*)) 500 mg in 100 mls @ 100 mls /hr IVPB Q24H [facility] Last Admin: 06/30/17 12:37 Dose: 100 mls/hr Melatonin (Melatonin (Nf)) 3 mg PO BEDTIME [facility] PRN Reason: Protocol Last Admin: 06/30/17 21:52 Dose: 3 mg Methylprednisolone Sodium Succinate (Solu-Medrol 40 Mg) 40 mg IV Q8H [facility] Last Admin: 07/01/17 05:58 Dose: 40 mg Mometasone Furoate/Formoterol Fumar (Dulera 200/5 Mdi*) 2 puff INH BID [facility] Last Admin: 07/01/17 09:36 Dose: 2 puff Omeprazole (Prilosec Cap*) 20 mg PO DAILY@0600 [facility] Last Admin: 07/01/17 05:58 Dose: 20 mg Ondansetron HCl (Zofran Inj*) 4 mg IV Q6H PRN PRN Reason: NAUSEA Sodium Chloride (Hyper-Shayne 7%*) 4 ml INH Q12HR [facility] Last Admin: 07/01/17 09:33 Dose: 4 ml Tiotropium [place] (Spiriva Cap.Inh*) 1 cap INH DAILY [facility] Last Admin: 07/01/17 09:35 Dose: 1 cap.inh Vital Signs - 8 hr 07/01/17 07/01/17 07/01/17 03:43 06:09 07:41 Temperature 98.0 F 97.9 F Pulse Rate 82 98 87 Respiratory 16 18 17 Rate Blood Pressure 115/62 105/70 (mmHg) O2 Sat by Pulse 91 94 92 Oximetry 07/01/17 07/01/17 07:59 09:38 Temperature Pulse Rate 98 Respiratory 17 16 Rate Blood Pressure (mmHg) O2 Sat by Pulse 92 Oximetry Oxygen Devices in Use Now: None Appearance: Alert, NAD Eyes: No Scleral Icterus, PERRLA Ears/Nose/Mouth/Throat: Mucous Membranes Moist Neck: NL Appearance and Movements; NL JVP, Trachea Midline Respiratory: - - Wheeze bilaterally with rhonchi, no rales Cardiovascular: NL Sounds; No Murmurs; No JVD, RRR, No Edema Extremities: No Edema Skin: No Rash or Ulcers Neurological: Alert and Oriented x 3, NL Gait, NL Muscle Strength and Tone Nutrition: Taking PO's Result Diagrams: 06/28/17 19:00 06/28/17 19:00 Diagnostic Imaging: Patient Name: COLE TAMAYO Medical Record#: [id number] Ordering Physician: Kenneth Acuña MD Acct.#: [id number] : 1970 Age: 46 Sex: F Location: EMERGENCY DEPARTMENT Exam Date: 06/28/172032 ADM Status: REG ER Order Information: CT CHEST W Accession Number: [id number] CPT: 25803 INDICATION: Wheezing and shortness of breath. Aspirated a pill a few weeks ago. COMPARISON: June 28, 2017 radiographs. TECHNIQUE: Multidetector CT images were obtained from the lung apices to the upper abdomen with 80 mL Omnipaque 300 IV contrast. Multiplanar reformation. REPORT: Advanced emphysema most marked at the upper lung zones. No focal pulmonary lesion, alveolar consolidation, or focal air trapping evident. No conspicuous central endobronchial foreign body evident. Negative for pleural effusion or pneumothorax. Negative for thoracic lymphadenopathy, cardiomegaly, pericardial effusion. Normal diameter thoracic aorta. Negative for aortic dissection. Unremarkable limited images through the upper abdomen. Negative for thoracic fracture or suspicious focal osseous lesions. IMPRESSION: 1. Advanced emphysema. 2. No conspicuous central endobronchial foreign body, evidence for focal air trapping, or pneumonia. <Electronically signed by Estrada Lynch MD in [place]> 06/28/172117 Dictated By: Estrada Lynch MD Dictated Date/Time: 06/28/172117 Transcribed Date/Time: 06/28/172111 Copy to: Assess/Plan/Problems-Billing Assessment: This is a 47 year old female patient with hx of progressive dyspnea, with findings positive for emphysema on CT, possibly r/o AAT deficiency. - Patient Problems (1) Shortness of breath Code(s): R06.02 - SHORTNESS OF BREATH SNOMED Code(s): 611221585 Comment: - SHH=536, not likely AAT deficiency (would be <80) - Continue nebs, dulera, IV solumedrol, levaquin and spiriva at current doses - Dr. Scanlon following (2) DVT prophylaxis Code(s): [id number] - SNOMED Code(s): 446456945 Comment: - low risk/ambulatory (3) Full code status Code(s): Z78.9 - OTHER SPECIFIED HEALTH STATUS SNOMED Code(s): 242727421 Status and Disposition: remain inpatient for IV steroids and atbx. Likely DC Tuesday if clear by pulmonology. Counseling and/or Coordination of Care Minutes: coordinated with staff
--- NOTE | 2017-07-01 12:38 | PN ---
Progress Note - Progress Note Date of Service: 07/01/17 - Pulm f/u note Note: Pt seen and examined at bedside. Pt reports episode of SOB this am, attributes to not taking bronchodilator last night. Overall feels better. Is shaky from predniosone Active Medications Generic Name Dose Route Start Last Admin Trade Name Freq PRN Reason Stop Dose Admin Albuterol 2.5 mg 06/29/17 00:09 Ventolin 2.5 Mg/3 Ml Neb.Yolanda* INH Q2H PRN SOB/WHEEZING Albuterol 2.5 mg 06/29/17 01:00 07/01/17 09:32 Ventolin 2.5 Mg/3 Ml Neb.Yolanda* INH 2.5 mg Q4H [facility] Administration Levofloxacin/Dextrose 500 mg in 100 mls @ 100 mls/hr 06/29/17 12:00 06/30/17 12:37 Levaquin 500 Mg Ivpremix(*) IVPB 100 mls/hr Q24H [facility] Administration Melatonin 3 mg 06/29/17 21:00 06/30/17 21:52 Melatonin (Nf) PO 3 mg BEDTIME [facility] Administration Protocol Methylprednisolone Sodium Succinate 40 mg 06/30/17 06:00 07/01/17 05:58 Solu-Medrol 40 Mg IV 40 mg Q8H [facility] Administration Mometasone Furoate/Formoterol Fumar 2 puff 06/29/17 01:00 07/01/17 09:36 Dulera 200/5 Mdi* INH 2 puff BID [facility] Administration Omeprazole 20 mg 06/29/17 06:00 07/01/17 05:58 Prilosec Cap* PO 20 mg DAILY@0600 [facility] Administration Ondansetron HCl 4 mg 06/29/17 00:10 Zofran Inj* IV Q6H PRN NAUSEA Sodium Chloride 4 ml 06/30/17 09:00 07/01/17 09:33 Hyper-Shayne 7%* INH 4 ml Q12HR [facility] Administration Tiotropium [place] 1 cap 06/29/17 09:00 07/01/17 09:35 Spiriva Cap.Inh* INH 1 cap.inh DAILY [facility] Administration Vital Signs Temp Pulse Resp BP Pulse Ox 97.9 F 99 16 105/70 92 07/01/17 07:41 07/01/17 09:38 07/01/17 09:38 07/01/17 07:41 07/01/17 09:38 O/E: Pt in NAD, alert, awake HEENT: PERRLA, No JVD Lungs: Wheeze + b/l, prolonged expectorated phase CVS: S1, S2+, regular Abd: Soft, BS+ Ext: No edema, normal ROM Neuro: No focal defecits Skin: Petechial rash, pt reports flee bites Laboratory Results - last 24 hr 06/29/17 07/01/17 07/01/17 07:02 09:24 09:24 WBC 15.8 H RBC 4.74 Hgb 13.7 Hct 40 MCV 85 MCH 29 MCHC 34 RDW 14 Plt Count 322 MPV 7 L Neut % (Auto) 91.2 H Lymph % (Auto) 7.2 [place] % (Auto) 1.5 Eos % (Auto) 0 Baso % (Auto) 0.1 Absolute Neuts (auto) 14.4 H Absolute Lymphs (auto) 1.1 Absolute Monos (auto) 0.2 Absolute Eos (auto) 0 Absolute Basos (auto) 0 Absolute Nucleated RBC 0 Nucleated RBC % 0.1 Sodium 135 Potassium 4.1 Chloride 102 Carbon Dioxide 22 Anion Gap 11 BUN 16 Creatinine 0.77 Est GFR ( Amer) 103.3 Est GFR (Non-Af Amer) 80.4 BUN/Creatinine Ratio 20.8 H Glucose 164 H Calcium 9.9 [id number] 133 I/R: 46 y o f former smoker with second hand smoking history a/w worsening SOB, cough with Acute bronchitis/COPD exacerbation Significant emphysema on CT chest, alpha-1 negative Pt improving slowly, still with wheeze Is able to expectorate phleghm with hypertonic saline nebs Pt reproting shakiness, likely related to prednisone, Bl sugars also elevated Will c/w current dose of steroids given wheezing c/w bronchodilators c/w Levaquin to complete 7 day course Not needing O2 at rest OOB to chair, ambulate as tolerated
[2017-07-01] MEDS: Levofloxacin 500 MG IVPREMIX(* 500 MG/100 ML BAG IVPB SCH (13:09)
[2017-07-01] MEDS: CMCS: Melatonin (NF) 3 MG TAB PO SCH (21:00)
[2017-07-02] MEDS: Albuterol 2.5 MG/3 ML NEB.SOL* (0.083%) INH SCH ×4 (02:19→20:58)
[2017-07-02] MEDS: Omeprazole CAP* 20 MG PO SCH (06:41)
[2017-07-02] MEDS: methylPREDNISolone SOD 40 MG* 1 ML VIAL IV SCH ×2 (06:41→13:06)
[2017-07-02] MEDS: Sodium Chloride(INHALANT) 7%* 4 ML NEB.SOLN INH SCH ×2 (09:43→20:59)
[2017-07-02] MEDS: Mometasone/Formoter 200/5 MDI INH SCH ×2 (09:45→21:17)
[2017-07-02] MEDS: Tiotropium CAP.INH* CAP.INH/18 MCG (USE ORDER SET !) INH SCH (09:45)
[2017-07-02] MEDS: Levofloxacin 500 MG IVPREMIX(* 500 MG/100 ML BAG IVPB SCH (11:43)
--- NOTE | 2017-07-02 12:32 | PN ---
Progress Note - Progress Note Date of Service: 07/02/17 - Pulm f/u note Note: Pt seen and examined at bedside. Pt reports feeling better this am. Has been needing neb treatments every 4 hrs, having tightness and SOB if she doesnot receive treatments on time. Was able to cough some phleghm today. Active Medications Generic Name Dose Route Start Last Admin Trade Name Freq PRN Reason Stop Dose Admin Albuterol 2.5 mg 06/29/17 00:09 Ventolin 2.5 Mg/3 Ml Neb.Yolanda* INH Q2H PRN SOB/WHEEZING Albuterol 2.5 mg 07/01/17 21:00 07/02/17 09:44 Ventolin 2.5 Mg/3 Ml Neb.Yolanda* INH 2.5 mg [id number] AWAKE MORALES Administration Levofloxacin/Dextrose 500 mg in 100 mls @ 100 mls/hr 06/29/17 12:00 07/02/17 11:43 Levaquin 500 Mg Ivpremix(*) IVPB 100 mls/hr Q24H [facility] Administration Melatonin 3 mg 06/29/17 21:00 07/01/17 21:00 Melatonin (Nf) PO 3 mg BEDTIME M[facility]ALES Administration Protocol Methylprednisolone Sodium Succinate 40 mg 06/30/17 06:00 07/02/17 06:41 Solu-Medrol 40 Mg IV 40 mg Q8H [facility]AL[facility] Administration Mometasone Furoate/Formoterol Fumar 2 puff 06/29/17 01:00 07/02/17 09:45 Dulera 200/5 Mdi* INH 2 puff BID [facility] Administration Omeprazole 20 mg 06/29/17 06:00 07/02/17 06:41 Prilosec Cap* PO 20 mg DAILY@0600 [facility] Administration Ondansetron HCl 4 mg 06/29/17 00:10 Zofran Inj* IV Q6H PRN NAUSEA Sodium Chloride 4 ml 06/30/17 09:00 07/02/17 09:43 Hyper-Shayne 7%* INH 4 ml Q12HR [facility]ALES Administration Tiotropium [place] 1 cap 06/29/17 09:00 07/02/17 09:45 Spiriva Cap.Inh* INH 1 cap.inh DAILY [facility] Administration Vital Signs Temp Pulse Resp BP Pulse Ox 98.1 F 87 20 113/70 94 07/02/17 07:14 07/02/17 07:14 07/02/17 08:00 07/02/17 07:14 07/02/17 07:14 O/E: Pt in NAD, alert, awake, in good spirits HEENT: PERRLA, No JVD, mucus membranes moist Lungs: Wheeze + b/l, prolonged expectoratory phase, wheezing improved today CVS: S1, S2+, regular, no murmer Abd: Soft, BS+, NT Ext: No edema, normal ROM Neuro: No focal defecits Laboratory Results - last 24 hr 06/29/17 07/01/17 07:02 09:24 Sodium 135 Potassium 4.1 Chloride 102 Carbon Dioxide 22 Anion Gap 11 BUN 16 Creatinine 0.77 Est GFR ( Amer) 103.3 Est GFR (Non-Af Amer) 80.4 BUN/Creatinine Ratio 20.8 H Glucose 164 H Calcium 9.9 Kvvou-3-Udjscregvpi 123 Alpha-1-AT Phenotype Mm Vitamin B12 352 25-OH Vitamin D Total 24.8 I/R: 46 y o f former smoker with second hand smoking history a/w worsening SOB, cough Acute bronchitis/COPD exacerbation- improving slowly Significant emphysema on CT chest, alpha-1 negative Wheeze improved today Is able to expectorate phleghm with hypertonic saline nebs, had yellow thick phleghm this am Pt reporting shakiness, likely related to prednisone Will lower solumedrol dose today to 40mg q 12 hrs c/w bronchodilators q 4 hrs c/w Levaquin to complete 7 day course Not needing O2 at rest, will need to assess needs upon d/c Will need arrangement for nebulizer equipment at home upon d/c OOB to chair, ambulate as tolerated If pt is d/charissa over weeked, will f/u in pulm clinic in 2 weeks
--- NOTE | 2017-07-02 14:33 | PN ---
Subjective Date of Service: 07/02/17 Interval History: . Pt reports she feels better today but continues to require neb treatment every 4 hours. She continues to have wheezing, she does reports relief after the neb tx. No fevers or chills. Reports good appetite. Objective Active Medications: Albuterol (Ventolin 2.5 Mg/3 Ml Neb.Yolanda*) 2.5 mg INH Q2H PRN PRN Reason: SOB/WHEEZING Albuterol (Ventolin 2.5 Mg/3 Ml Neb.Yolanda*) 2.5 mg INH RT.[id number] AWAKE [facility] Last Admin: 07/02/17 13:36 Dose: 2.5 mg Levofloxacin/Dextrose (Levaquin 500 Mg Ivpremix(*)) 500 mg in 100 mls @ 100 mls /hr IVPB Q24H [facility] Last Admin: 07/02/17 11:43 Dose: 100 mls/hr Melatonin (Melatonin (Nf)) 3 mg PO BEDTIME [facility] PRN Reason: Protocol Last Admin: 07/01/17 21:00 Dose: 3 mg Methylprednisolone Sodium Succinate (Solu-Medrol 40 Mg) 40 mg IV Q12H [facility] Last Admin: 07/02/17 13:06 Dose: 40 mg Mometasone Furoate/Formoterol Fumar (Dulera 200/5 Mdi*) 2 puff INH BID [facility] Last Admin: 07/02/17 09:45 Dose: 2 puff Omeprazole (Prilosec Cap*) 20 mg PO DAILY@0600 [facility] Last Admin: 07/02/17 06:41 Dose: 20 mg Ondansetron HCl (Zofran Inj*) 4 mg IV Q6H PRN PRN Reason: NAUSEA Sodium Chloride (Hyper-[place]ayne 7%*) 4 ml INH Q12HR [facility] Last Admin: 07/02/17 09:43 Dose: 4 ml Tiotropium [place] (Spiriva Cap.Inh*) 1 cap INH DAILY [facility] Last Admin: 07/02/17 09:45 Dose: 1 cap.inh Vital Signs - 8 hr 07/02/17 07/02/17 07/02/17 07:14 08:00 11:03 Temperature 98.1 F 98.0 F Pulse Rate 87 104 Respiratory 16 20 18 Rate Blood Pressure 113/70 138/81 (mmHg) O2 Sat by Pulse 94 92 Oximetry Oxygen Devices in Use Now: None Appearance: 46 yo well developed female sitting up in bed in NAD A+O x3 Eyes: No Scleral Icterus, PERRLA Ears/Nose/Mouth/Throat: NL Teeth, Lips, Gums Respiratory: Symmetrical Chest Expansion and Respiratory Effort, - - exp wheezing bilaterally (mild), no dyspnea Cardiovascular: NL Sounds; No Murmurs; No JVD, RRR, No Edema Abdominal: NL Sounds; No Tenderness; No Distention Extremities: No Edema, No Clubbing, Cyanosis Skin: No Rash or Ulcers, No Nodules or Sclerosis Neurological: Alert and Oriented x 3, NL Sensation, NL Muscle Strength and Tone Lines/Tubes/Other Access: Clean, Dry and Intact Peripheral IV Nutrition: Taking PO's Result Diagrams: 07/01/17 09:24 07/01/17 09:24 Diagnostic Imaging: Patient Name: COLE TAMAYO Medical Record#: [id number] Ordering Physician: Kenneth Acuña MD Acct.#: [id number] : 1970 Age: 46 Sex: F Location: EMERGENCY DEPARTMENT Exam Date: 06/28/172032 ADM Status: REG ER Order Information: CT CHEST W Accession Number: [id number] CPT: 47398 INDICATION: Wheezing and shortness of breath. Aspirated a pill a few weeks ago. COMPARISON: June 28, 2017 radiographs. TECHNIQUE: Multidetector CT images were obtained from the lung apices to the upper abdomen with 80 mL Omnipaque 300 IV contrast. Multiplanar reformation. REPORT: Advanced emphysema most marked at the upper lung zones. No focal pulmonary lesion, alveolar consolidation, or focal air trapping evident. No conspicuous central endobronchial foreign body evident. Negative for pleural effusion or pneumothorax. Negative for thoracic lymphadenopathy, cardiomegaly, pericardial effusion. Normal diameter thoracic aorta. Negative for aortic dissection. Unremarkable limited images through the upper abdomen. Negative for thoracic fracture or suspicious focal osseous lesions. IMPRESSION: 1. Advanced emphysema. 2. No conspicuous central endobronchial foreign body, evidence for focal air trapping, or pneumonia. <Electronically signed by Estrada Lynch MD in [place]> 06/28/172117 Dictated By: Estrada Lynch MD Dictated Date/Time: 06/28/172117 Transcribed Date/Time: 06/28/172111 Copy to: Assess/Plan/Problems-Billing Assessment: This is a 47 year old female with distant hx of smoking in high school but reports second hand smoking history with progressive dyspnea, with findings positive for emphysema on CT with acute bronchitis/COPD exacerbation - Patient Problems (1) Shortness of breath Comment: - Acute bronchitis/COPD exacerbation. Slowly improving - Alpha-1 negative - Continue nebs, dulera, IV solumedrol, levaquin and spiriva at current doses - Dr. Scanlon following - Solumedrol lowered to 40 mg IV Q12, c/w bronchodilators. - Levaquin 7 day course. - Will need a nebulizer arranged at home. (2) Full code status (3) DVT prophylaxis Comment: - low risk/ambulatory Status and Disposition: remain inpatient for IV steroids and atbx. Likely DC Tuesday if clear by pulmonology.
[2017-07-02] MEDS: CMCS: Melatonin (NF) 3 MG TAB PO SCH (20:52)
[2017-07-03] MEDS: Albuterol 2.5 MG/3 ML NEB.SOL* (0.083%) INH SCH ×4 (01:22→19:32)
[2017-07-03] MEDS: methylPREDNISolone SOD 40 MG* 1 ML VIAL IV SCH ×2 (01:25→13:09)
[2017-07-03] MEDS: Omeprazole CAP* 20 MG PO SCH (06:18)
[2017-07-03] MEDS: Sodium Chloride(INHALANT) 7%* 4 ML NEB.SOLN INH SCH (07:35)
[2017-07-03] MEDS: Tiotropium CAP.INH* CAP.INH/18 MCG (USE ORDER SET !) INH SCH (07:35)
[2017-07-03] MEDS: Mometasone/Formoter 200/5 MDI INH SCH ×2 (07:35→19:32)
[2017-07-03] MEDS: Cholecalciferol TAB* 1000 UNITS PO SCH (08:11)
--- NOTE | 2017-07-03 13:19 | PN ---
Subjective Date of Service: 07/03/17 Interval History: Patient reports she continues to feel wheezy, tight chest and sob when coughing or ambulating. Walking O2 sat down to 88%. She does not feel like she can go home today. Is very teary during my visit with feeling stressed about this new diagnosis and continues to not feel well. No fevers or chills. Reports little sputum production. Objective Active Medications: Albuterol (Ventolin 2.5 Mg/3 Ml Neb.Yolanda*) 2.5 mg INH Q2H PRN PRN Reason: SOB/WHEEZING Albuterol (Ventolin 2.5 Mg/3 Ml Neb.Yolanda*) 2.5 mg INH [id number] AWAKE [facility] Last Admin: 07/03/17 12:08 Dose: 2.5 mg Cholecalciferol (Vitamin D Tab*) 2,000 units PO DAILY [facility] Last Admin: 07/03/17 08:11 Dose: 2,000 units Lactobacillus Rhamnosus (Culturelle*) 1 cap PO BID [facility] Levofloxacin (Levaquin Tab*) 500 mg PO Q24H [facility] Stop: 07/06/17 11:59 Melatonin (Melatonin (Nf)) 3 mg PO BEDTIME [facility] PRN Reason: Protocol Last Admin: 07/02/17 20:52 Dose: 3 mg Methylprednisolone Sodium Succinate (Solu-Medrol 40 Mg) 40 mg IV Q12H [facility] Last Admin: 07/03/17 13:09 Dose: 40 mg Mometasone Furoate/Formoterol Fumar (Dulera 200/5 Mdi*) 2 puff INH BID [facility] Last Admin: 07/03/17 07:35 Dose: 2 puff Omeprazole (Prilosec Cap*) 20 mg PO DAILY@0600 [facility] Last Admin: 07/03/17 06:18 Dose: 20 mg Ondansetron HCl (Zofran Inj*) 4 mg IV Q6H PRN PRN Reason: NAUSEA Tiotropium [place] (Spiriva Cap.Inh*) 1 cap INH DAILY [facility] Last Admin: 07/03/17 07:35 Dose: 1 cap.inh Vital Signs - 8 hr 07/03/17 07/03/17 07/03/17 07:38 07:46 07:56 Temperature 97.5 F Pulse Rate 80 80 88 Respiratory 16 16 18 Rate Blood Pressure 118/69 (mmHg) O2 Sat by Pulse 93 93 93 Oximetry 07/03/17 07/03/17 07/03/17 08:00 08:31 12:11 Temperature Pulse Rate 76 Respiratory 20 16 Rate Blood Pressure (mmHg) O2 Sat by Pulse 88 98 Oximetry Oxygen Devices in Use Now: None Appearance: well developed 46 yo female A+O x3; weepy Eyes: No Scleral Icterus, PERRLA Ears/Nose/Mouth/Throat: NL Teeth, Lips, Gums, Mucous Membranes Moist Neck: NL Appearance and Movements; NL JVP Respiratory: Symmetrical Chest Expansion and Respiratory Effort, - - expiratory wheezing throughout, good air flow b/l Cardiovascular: NL Sounds; No Murmurs; No JVD, RRR, No Edema Extremities: No Edema, No Clubbing, Cyanosis Skin: No Rash or Ulcers, No Nodules or Sclerosis Neurological: Alert and Oriented x 3, NL Sensation, NL Gait, NL Muscle Strength and Tone Lines/Tubes/Other Access: Clean, Dry and Intact Peripheral IV Nutrition: Taking PO's Result Diagrams: 07/01/17 09:24 07/01/17 09:24 Diagnostic Imaging: Patient Name: COLE TAMAYO Medical Record#: [id number] Ordering Physician: Kenneth Acuña MD Acct.#: [id number] : 1970 Age: 46 Sex: F Location: EMERGENCY DEPARTMENT Exam Date: 06/28/172032 ADM Status: REG ER Order Information: CT CHEST W Accession Number: [id number] CPT: 80276 INDICATION: Wheezing and shortness of breath. Aspirated a pill a few weeks ago. COMPARISON: June 28, 2017 radiographs. TECHNIQUE: Multidetector CT images were obtained from the lung apices to the upper abdomen with 80 mL Omnipaque 300 IV contrast. Multiplanar reformation. REPORT: Advanced emphysema most marked at the upper lung zones. No focal pulmonary lesion, alveolar consolidation, or focal air trapping evident. No conspicuous central endobronchial foreign body evident. Negative for pleural effusion or pneumothorax. Negative for thoracic lymphadenopathy, cardiomegaly, pericardial effusion. Normal diameter thoracic aorta. Negative for aortic dissection. Unremarkable limited images through the upper abdomen. Negative for thoracic fracture or suspicious focal osseous lesions. IMPRESSION: 1. Advanced emphysema. 2. No conspicuous central endobronchial foreign body, evidence for focal air trapping, or pneumonia. <Electronically signed by Estrada Lynch MD in [place]> 06/28/172117 Dictated By: Estrada Lynch MD Dictated Date/Time: 06/28/172117 Transcribed Date/Time: 06/28/172111 Copy to: Assess/Plan/Problems-Billing Assessment: This is a 47 year old female with distant hx of smoking in high school but reports second hand smoking history with progressive dyspnea, with findings positive for emphysema on CT with acute bronchitis/COPD exacerbation - Patient Problems (1) Shortness of breath Comment: - Acute bronchitis/COPD exacerbation. Slowly improving - Alpha-1 negative - Continue nebs, dulera, IV solumedrol, levaquin and spiriva at current doses - Dr. Scanlon following - Solumedrol lowered to 40 mg IV Q12, c/w bronchodilators. Will need taper at discharge - Levaquin 7 day course - switch to PO last dose 07/05 - Will need a nebulizer arranged at home and possible - may require oxygen at home. (2) Full code status (3) DVT prophylaxis Comment: - low risk/ambulatory Status and Disposition: remain inpatient for IV steroids and atbx. Possibly DC to home tomorrow if stable.
[2017-07-03] MEDS: Lactobacillus Acidophilu (GG)* 1 CAP CAP PO SCH (20:49)
[2017-07-03] MEDS: CMCS: Melatonin (NF) 3 MG TAB PO SCH (20:49)
[2017-07-04] MEDS: Albuterol 2.5 MG/3 ML NEB.SOL* (0.083%) INH SCH ×4 (00:32→20:40)
[2017-07-04] MEDS: Omeprazole CAP* 20 MG PO SCH (05:39)
[2017-07-04 05:58] LABS: Hematocrit 38 % (35-47); Hemoglobin 12.9 g/dl (12.0-16.0); Mean Corpuscular HGB Conc 34 g/dl (31-36); Mean Corpuscular Hemoglobin 29 pg (27-31); Mean Corpuscular Volume 86 fL (80-97); Mean Platelet Volume 7 um3 (7.4-10.4); Platelet Count 259 10^3/ul (150-450); Red Blood Count 4.42 10^6/ul (4.0-5.4); Red Cell Distribution Width 14 % (10.5-15); White Blood Count 10.2 10^3/ul (3.5-10.8)
[2017-07-04 06:12] LABS: EGFR Non-African American 68.9 (>60)
[2017-07-04 06:46] LABS: ABS Basophils 0 10^3/ul (0-0.2); ABS Eosinophils 0 10^3/ul (0-0.6); ABS Lymphocytes 2.7 10^3/ul (1.0-4.8); ABS Monocytes 0.9 10^3/ul (0-0.8); ABS Neutrophils 6.6 10^3/ul (1.5-7.7); ABS Nucleated RBC 0 10^3/ul; Eosinophil % 0.4 % (0-6); Lymphocyte % 26.3 % (25-47); Nucleated Red Blood Cells % 0.1
[2017-07-04] MEDS: Tiotropium CAP.INH* CAP.INH/18 MCG (USE ORDER SET !) INH SCH (07:38)
[2017-07-04] MEDS: Mometasone/Formoter 200/5 MDI INH SCH ×2 (07:38→20:39)
[2017-07-04] MEDS: predniSONE TAB* 20 MG PO SCH (09:09)
[2017-07-04] MEDS: Cholecalciferol TAB* 1000 UNITS PO SCH (09:09)
[2017-07-04] MEDS: Lactobacillus Acidophilu (GG)* 1 CAP CAP PO SCH ×2 (09:10→21:40)
--- NOTE | 2017-07-04 11:57 | PN ---
Subjective Date of Service: 07/04/17 Interval History: Ms. Boles feels well at rest but becomes very dyspneic with any activity. SpO2 noted to be 88% with ambulation to bathroom. Patient reported to be to short of breath to "walk and talk at the same time." She denies other complaint including chest pain, nausea, or abdominal pain. Objective Active Medications: Albuterol (Ventolin 2.5 Mg/3 Ml Neb.Yolanda*) 2.5 mg INH Q2H PRN Albuterol (Ventolin 2.5 Mg/3 Ml Neb.Yolanda*) 2.5 mg INH [id number] AWAKE MORALES Cholecalciferol (Vitamin D Tab*) 2,000 units PO DAILY [facility] Lactobacillus Rhamnosus (Culturelle*) 1 cap PO BID [facility] Levofloxacin (Levaquin Tab*) 500 mg PO Q24H [facility] Melatonin (Melatonin (Nf)) 3 mg PO BEDTIME [facility] Mometasone Furoate/Formoterol Fumar (Dulera 200/5 Mdi*) 2 puff INH BID [facility] Omeprazole (Prilosec Cap*) 20 mg PO DAILY@0600 [facility] Ondansetron HCl (Zofran Inj*) 4 mg IV Q6H PRN Prednisone (Deltasone Tab*) 60 mg PO DAILY [facility] Tiotropium [place] (Spiriva Cap.Inh*) 1 cap INH DAILY [facility] Vital Signs: Temp Pulse Resp BP Pulse Ox 97.3 F 72 18 118/75 97 07/04/17 07:18 07/04/17 07:39 07/04/17 07:45 07/04/17 07:18 07/04/17 07:39 Oxygen Devices in Use Now: None Appearance: Female sitting up in bed in NAD Eyes: No Scleral Icterus Ears/Nose/Mouth/Throat: Mucous Membranes Moist Neck: Trachea Midline Respiratory: Symmetrical Chest Expansion and Respiratory Effort, - - Wheezing bilaterally Cardiovascular: NL Sounds; No Murmurs; No JVD, No Edema Abdominal: NL Sounds; No Tenderness; No Distention Lymphatic: No Cervical Adenopathy Extremities: No Edema Skin: No Rash or Ulcers Neurological: Alert and Oriented x 3, NL Muscle Strength and Tone Nutrition: Taking PO's Result Diagrams: 07/04/17 05:40 07/04/17 05:41 Assess/Plan/Problems-Billing Assessment: Ms. Boles is a 47 year old female with distant hx of smoking in high school but reports second hand smoking history with progressive dyspnea, with findings positive for emphysema on CT with acute bronchitis/COPD exacerbation - Patient Problems (1) COPD exacerbation Comment: - Slowly improving. Plan to ambulated with 2 L NC to see if it improves her tolerance. - Alpha-1 negative, long history of second hand smoke exposure. - Continue nebs, dulera, prednisone, levaquin and spiriva at current doses - Appreciate consultation from Dr. Scanlon, will need outpatient follow up. - Will need a nebulizer arranged at home and possible - may require oxygen at home. (2) DVT prophylaxis Comment: - low risk/ambulatory (3) Full code status Comment: Status and Disposition: Inpatient. Anticipate discharge to home when medically stable.
[2017-07-04] MEDS ORDERED: Levofloxacin TAB* 500 MG PO SCH (12:00)
--- NOTE | 2017-07-04 17:11 | PN ---
Progress Note - Progress Note Date of Service: 07/04/17 - Pulm f/u note Note: Pt seen and examined at bedside. Pt reports improvement in SOB- less SOB- tightness, cough. Has not been needing nebs round the clock. Active Medications Generic Name Dose Route Start Last Admin Trade Name Freq PRN Reason Stop Dose Admin Albuterol 2.5 mg 06/29/17 00:09 Ventolin 2.5 Mg/3 Ml Neb.Yolanda* INH Q2H PRN SOB/WHEEZING Albuterol 2.5 mg 07/01/17 21:00 07/04/17 13:51 Ventolin 2.5 Mg/3 Ml Neb.Yolanda* INH 2.5 mg [id number] AWAKE MORALES Administration Cholecalciferol 2,000 units 07/03/17 09:00 07/04/17 09:09 Vitamin D Tab* PO 2,000 units DAILY [facility]AL[facility] Administration Lactobacillus Rhamnosus 1 cap 07/03/17 21:00 07/04/17 09:10 Culturelle* PO 1 cap BID [facility] Administration Levofloxacin 500 mg 07/04/17 12:00 07/04/17 12:32 Levaquin Tab* PO 07/06/17 11:59 500 mg Q24H [facility] Administration Melatonin 3 mg 06/29/17 21:00 07/03/17 20:49 Melatonin (Nf) PO 3 mg BEDTIME [facility] Administration Protocol Mometasone Furoate/Formoterol Fumar 2 puff 06/29/17 01:00 07/04/17 07:38 Dulera 200/5 Mdi* INH 2 puff BID [facility] Administration Omeprazole 20 mg 06/29/17 06:00 07/04/17 05:39 Prilosec Cap* PO 20 mg DAILY@0600 [facility] Administration Ondansetron HCl 4 mg 06/29/17 00:10 Zofran Inj* IV Q6H PRN NAUSEA Prednisone 60 mg 07/04/17 09:00 07/04/17 09:09 Deltasone Tab* PO 60 mg DAILY [facility] Administration Tiotropium [place] 1 cap 06/29/17 09:00 07/04/17 07:38 Spiriva Cap.Inh* INH 1 cap.inh DAILY [facility] Administration Vital Signs Temp Pulse Resp BP Pulse Ox 97.9 F 84 16 117/71 95 07/04/17 11:05 07/04/17 13:51 07/04/17 13:51 07/04/17 11:05 07/04/17 13:51 O/E: Pt in NAD, alert, awake HEENT: PERRLA, No JVD, mucus membranes moist Lungs: prolonged expectoratory phase, scattered wheeze CVS: S1, S2+, regular, no murmer Abd: Soft, BS+, NT, ND Ext: No edema, normal ROM Neuro: No focal defecits Laboratory Results - last 24 hr 07/04/17 07/04/17 05:40 05:41 WBC 10.2 RBC 4.42 Hgb 12.9 Hct 38 MCV 86 MCH 29 MCHC 34 RDW 14 Plt Count 259 MPV 7 L Neut % (Auto) 64.4 Lymph % (Auto) 26.3 [place] % (Auto) 8.5 H Eos % (Auto) 0.4 Baso % (Auto) 0.4 Absolute Neuts (auto) 6.6 Absolute Lymphs (auto) 2.7 Absolute Monos (auto) 0.9 H Absolute Eos (auto) 0 Absolute Basos (auto) 0 Absolute Nucleated RBC 0 Nucleated RBC % 0.1 Sodium 137 Potassium 4.0 Chloride 104 Carbon Dioxide 27 Anion Gap 6 BUN 21 Creatinine 0.88 Est GFR ( Amer) 88.6 Est GFR (Non-Af Amer) 68.9 BUN/Creatinine Ratio 23.9 H Glucose 89 Calcium 8.8 I/R: 46 y o f former smoker with second hand smoking history a/w worsening SOB, cough Acute bronchitis/COPD exacerbation- improving slowly Significant emphysema on CT chest, alpha-1 negative Wheeze improved significantly Is able to expectorate phleghm with hypertonic saline nebs, less phleghm now c/w prednisone taper, will recommend slow taper c/w bronchodilators q 4 hrs prn c/w Levaquin to complete 7 day course Not needing O2 at rest, will need to assess needs upon d/c Ambulatory O2 assessment to be repeated tomorrow Will need arrangement for nebulizer equipment at home upon d/c OOB to chair, ambulate as tolerated Will f/u in pulm clinic in 2 weeks
[2017-07-04] MEDS: CMCS: Melatonin (NF) 3 MG TAB PO SCH (21:40)
[2017-07-05] MEDS: Albuterol 2.5 MG/3 ML NEB.SOL* (0.083%) INH SCH ×3 (01:37→13:37)
[2017-07-05] MEDS: Omeprazole CAP* 20 MG PO SCH (05:33)
[2017-07-05] MEDS: predniSONE TAB* 20 MG PO SCH (07:08)
[2017-07-05] MEDS: Cholecalciferol TAB* 1000 UNITS PO SCH (07:09)
[2017-07-05] MEDS: Lactobacillus Acidophilu (GG)* 1 CAP CAP PO SCH (07:09)
--- NOTE | 2017-07-05 08:18 | PN ---
Subjective Date of Service: 07/05/17 Interval History: Ms. Boles states that she is doing very well today and is eager for discharge for home. She denies chest pain and her dyspnea on exertion is much better with 2L NC. Objective Active Medications: Albuterol (Ventolin 2.5 Mg/3 Ml Neb.Yolanda*) 2.5 mg INH Q2H PRN Albuterol (Ventolin 2.5 Mg/3 Ml Neb.Yolanda*) 2.5 mg INH [id number] AWAKE MORALES Cholecalciferol (Vitamin D Tab*) 2,000 units PO DAILY [facility] Lactobacillus Rhamnosus (Culturelle*) 1 cap PO BID [facility] Levofloxacin (Levaquin Tab*) 500 mg PO Q24H [facility] Melatonin (Melatonin (Nf)) 3 mg PO BEDTIME [facility] Mometasone Furoate/Formoterol Fumar (Dulera 200/5 Mdi*) 2 puff INH BID [facility] Omeprazole (Prilosec Cap*) 20 mg PO DAILY@0600 [facility] Ondansetron HCl (Zofran Inj*) 4 mg IV Q6H PRN Prednisone (Deltasone Tab*) 60 mg PO DAILY [facility] Tiotropium [place] (Spiriva Cap.Inh*) 1 cap INH DAILY [facility] Vital Signs: Temp Pulse Resp BP Pulse Ox 98.0 F 80 18 122/67 95 07/05/17 03:16 07/05/17 07:15 07/05/17 07:20 07/05/17 07:15 07/05/17 07:15 Oxygen Devices in Use Now: None Appearance: Female sitting up in bed in NAD Eyes: No Scleral Icterus Ears/Nose/Mouth/Throat: Mucous Membranes Moist Neck: Trachea Midline Respiratory: Symmetrical Chest Expansion and Respiratory Effort, - - Expiratory wheezing bilaterally Cardiovascular: NL Sounds; No Murmurs; No JVD, No Edema Abdominal: NL Sounds; No Tenderness; No Distention Lymphatic: No Cervical Adenopathy Extremities: No Edema Skin: No Rash or Ulcers Neurological: Alert and Oriented x 3, NL Muscle Strength and Tone Nutrition: Taking PO's Result Diagrams: 07/04/17 05:40 07/04/17 05:41 Diagnostic Imaging: Patient Name: COLE BOLES Medical Record#: [id number] Ordering Physician: Kenneth Acuña MD Acct.#: [id number] : 1970 Age: 46 Sex: F Location: EMERGENCY DEPARTMENT Exam Date: 06/28/172032 ADM Status: REG ER Order Information: CT CHEST W Accession Number: [id number] CPT: 71931 INDICATION: Wheezing and shortness of breath. Aspirated a pill a few weeks ago. COMPARISON: June 28, 2017 radiographs. TECHNIQUE: Multidetector CT images were obtained from the lung apices to the upper abdomen with 80 mL Omnipaque 300 IV contrast. Multiplanar reformation. REPORT: Advanced emphysema most marked at the upper lung zones. No focal pulmonary lesion, alveolar consolidation, or focal air trapping evident. No conspicuous central endobronchial foreign body evident. Negative for pleural effusion or pneumothorax. Negative for thoracic lymphadenopathy, cardiomegaly, pericardial effusion. Normal diameter thoracic aorta. Negative for aortic dissection. Unremarkable limited images through the upper abdomen. Negative for thoracic fracture or suspicious focal osseous lesions. IMPRESSION: 1. Advanced emphysema. 2. No conspicuous central endobronchial foreign body, evidence for focal air trapping, or pneumonia. <Electronically signed by Estrada Lynch MD in [place]> 06/28/172117 Dictated By: Estrada Lynch MD Dictated Date/Time: 06/28/172117 Transcribed Date/Time: 06/28/172111 Copy to: Assess/Plan/Problems-Billing Assessment: Ms. Boles is a 47 year old female with distant hx of smoking in high school but reports second hand smoking history with progressive dyspnea, with findings positive for emphysema on CT with acute bronchitis/COPD exacerbation - Patient Problems (1) COPD exacerbation Comment: - Continues to improve. Did well with 2 L NC with ambulation. - Alpha-1 negative, long history of second hand smoke exposure. - Continue nebs, dulera, prednisone, levaquin and spiriva at current doses - Appreciate consultation from Dr. Scanlon, will need outpatient follow up. - Will need a nebulizer arranged at home and possible - may require oxygen at home. (2) DVT prophylaxis Comment: - low risk/ambulatory (3) Full code status Comment: Status and Disposition: Discharge to home.
[2017-07-05] MEDS: Mometasone/Formoter 200/5 MDI INH SCH (08:34)
[2017-07-05] MEDS: Tiotropium CAP.INH* CAP.INH/18 MCG (USE ORDER SET !) INH SCH (08:34)
[2017-07-05 13:42] VITALS: BP 122/59
--- NOTE | 2017-07-05 16:03 | ED ---
Gilma Proctor Thomas, scribed for Kenneth Acuña MD on 06/28/17 at 1852 . Shortness of Breath - HPI Summary HPI Summary: The patient is a 46 year old female complaining of difficulty breathing. She is wheezing. About a week ago, the patient was evaluated for let-sided chest pain and shortness of breath. The patient suspects she may have inhaled a pill a few weeks ago. When she walks from room to room, her oxygen saturation declines to the 80s. The patient denies nasal discharge. She is a former smoker. - History of Current Complaint Chief Complaint: EDShortnessOfBreath Time Seen by Provider: 06/28/17 18:44 Hx Obtained From: Patient Onset/Duration: Still Present Timing: Constant Dyspnea At: Rest Aggrevating Factors: Nothing Alleviating Factors: Nothing Associated Signs & Symptoms: Wheezing Related History: Similar Episode - 10 days ago - Allergy/Home Medications Allergies/Adverse Reactions: Allergies Allergy/AdvReac Type Severity Reaction Status Date / Time No Known Allergies Allergy Verified 08/23/15 13:58 PMH/Surg Hx/FS Hx/Imm Hx Sensory History: Denies: Hx Legally Blind, Hx Deafness Opthamlomology History: Denies: Hx Legally Blind Infectious Disease History: No Infectious Disease History: Denies: Traveled Outside the [place] in Last 30 Days - Family History Known Family History: Positive: Other - COPD - Social History Alcohol Use: None Substance Use Type: Reports: None Smoking Status (MU): Unknown if Ever Smoked Review of Systems Negative: Fever, Chills Negative: Erythema - eyes Negative: Sore Throat Negative: Chest Pain Positive: Shortness Of Breath. Negative: Cough Negative: Abdominal Pain, Vomiting, Nausea Negative: dysuria, hematuria Negative: Myalgia, Edema Negative: Rash Neurological: Negative - dizziness All Other Systems Reviewed And Are Negative: Yes Physical Exam - Summary Physical Exam Summary: Constitutional: Well-developed, Well-nourished, Alert. (-) Distressed Skin: Warm, Dry HENT: Normocephalic; Atraumatic Eyes: Conjunctiva normal Neck: Musculoskeletal ROM normal neck. (-) JVD, (-) Stridor, (-) Tracheal deviation Cardio: Rhythm regular, rate normal, Heart sounds normal; Intact distal pulses; The pedal pulses are 2+ and symmetric. Radial pulses are 2+ and symmetric. (-) Murmur Pulmonary/Chest wall: She has inspiratory and expiratory wheezes. Abd: Soft, (-) Tenderness, (-) Distension, (-) Guarding, (-) Rebound Musculoskeletal: (-) Edema Lymph: (-) Cervical adenopathy Neuro: Alert, Oriented x3 Psych: Mood and affect Normal Triage Information Reviewed: Yes Vital Signs On Initial Exam: Initial Vitals Temp Pulse Resp BP Pulse Ox 97.9 F 93 22 151/82 95 06/28/17 17:26 06/28/17 17:26 06/28/17 17:26 06/28/17 17:26 06/28/17 17:26 Vital Signs Reviewed: Yes Diagnostics - Vital Signs Vital Signs Temp Pulse Resp BP Pulse Ox 06/28/17 18:30 82 16 107/67 94 06/28/17 18:27 81 94 06/28/17 18:25 118/71 06/28/17 17:26 97.9 F 93 22 151/82 95 - Laboratory Result Diagrams: 06/28/17 19:00 06/28/17 19:00 Lab Statement: Any lab studies that have been ordered have been reviewed, and results considered in the medical decision making process. - Radiology CXR Xray Interpretation: No Acute Changes - Stigmata of obstructive lung disease. No acute pulmonary or cardiac process evident. Dr. Acuña has reviewed this report. Radiology Interpretation Completed By: Radiologist - CT CT Chest CT Interpretation: Positive (See Comments) - 1. Advanced emphysema. 2. No conspicuous central endobronchial foreign body, evidence for focal air trapping , or pneumonia. Dr. Acuña has reviewed this report. CT Interpretation Completed By: Radiologist - EKG 17:55 Cardiac Rate: NL EKG Rhythm: Sinus Rhythm - at 87 BPM Course/Dx - Course Assessment/Plan: The patient is a 46 year old female complaining of difficulty breathing and wheezing. In the ED course the patient was given Solu-Medrol, Duoneb, Vancomycin, and Zosyn. Bloodwork was obtained. The patient will be admitted with a COPD exacerbation by Dr. Kaufman for continued IV steroids. She has required 6 nebulizer treatments and she is still wheezing. - Diagnoses Provider Diagnoses: COPD exacerbation Discharge - Discharge Plan Condition: Stable Disposition: ADMITTED TO [facility] Referrals: Kelin Hayden MD [Primary Care Provider] - The documentation as recorded by the Gilma lewis Thomas accurately reflects the service I personally performed and the decisions made by me, Kenneth Acuña MD.
--- NOTE | 2017-07-06 01:36 | DS ---
CC: Dr. Hayden * [facility] MEDICINE DISCHARGE SUMMARY: DATE OF ADMISSION: 06/28/17 DATE OF DISCHARGE: 07/05/17 PRIMARY CARE PHYSICIAN: Dr. Hayden. ATTENDING PHYSICIAN: Dr. Betzaida Tiwari.* (DICTATED BY MAGGY MIDDLETON NP) PRIMARY DIAGNOSES: 1. Emphysema (new diagnosis). 2. Chronic obstructive pulmonary disease exacerbation. SECONDARY DIAGNOSIS: None. MEDICATIONS AT THE TIME OF DISCHARGE: 1. Prednisone 10 mg via taper starting at 60 mg dose. 2. Incruse Ellipta 62.5 mcg inhaled daily. 3. Mometasone/formoterol 200/5 two puffs inhaled b.i.d. 4. Levofloxacin 500 mg p.o. q.24 hours x2. 2. Cholecalciferol 2000 units p.o. daily. 3. Albuterol inhaler 1 to 2 puffs inhaled q.4 hours p.r.n. 4. Albuterol nebulizer 2.5 mg inhaled q.4 hours p.r.n.. HOSPITAL COURSE: Ms. Boles is a 46-year-old female with no significant past medical history, who presented to the emergency room on 06/28/17 with concern for shortness of breath. Please see the dictated H and P from Gareth Kaufman MD, for complete details. In brief, the patient stated that she had 10 days of worsening shortness of breath, which she attributed to choking on her herbal supplement pill; however, on further discussion with her, it seemed that she also described some dyspnea on exertion all the way back to when she was a child. She reported being a former smoker and having quit about 10 years prior. She also reported having significant secondhand smoke from both parents and in her workplace. In the emergency room, Ms. Boles had a chest x-ray and a chest CT. The x-ray showed stigmata of obstructive lung disease and the CT showed "advanced emphysema with no conspicuous foreign body, evidence for focal air trapping, or pneumonia." It was suspected that patient had a COPD exacerbation and this was a new diagnosis of emphysema. She was seen in consultation by Dr. Scanlon and I refer you to her notes for complete details. In brief, she agreed with our estimation that the patient had COPD and was having an acute exacerbation. She agreed with the plan for Solu- Medrol, Levaquin, Dulera, Spiriva, with albuterol p.r.n. Because of the early onset and severity of her COPD, she did have an alpha-1 antitrypsin level sent and it was negative. Ms. Boles has been progressing well though very slowly. She had continued on Solu- Medrol for several days and has now been switched over to prednisone. She is completing a course of Levaquin. She requires 2 L nasal cannula to ambulate in the hallways due to her dyspnea, but with this 2 L with activity, she does quite well. She is not needing oxygen currently at rest. Ms. Boles is medically stable for discharge to home to follow up with her primary care physician, Dr. Hayden, as well as Dr. Scanlon regarding her new diagnosis of COPD. DISPOSITION: Home. DIET: Regular. ACTIVITY: As tolerated. FOLLOWUP PLAN: 1. Please follow up with Dr. Hayden in the next 1 to 2 weeks. 2. Please follow up with Dr. Scanlon in the next 2 to 4 weeks. TIME SPENT: Approximately 60 minutes was spent in discharge of this patient, more than half that time spent with the patient at bedside reviewing the events leading up to this hospitalization, performing physical examination, and reviewing the plan of care. MAGGY MIDDLETON NP [id number]/[facility] #: [id number] [place]
== END 2017-07-05 14:00 | disposition home or self-care (01) | DRG 140 ==
LOC: ED 17:20 → MED 23:50
PROVIDERS: ADMIT Hospitalist; ATTEND Internal Medicine
DX: J44.1 Chronic obstructive pulmonary disease with (acute) exacerbation (principal); J20.9 Acute bronchitis, unspecified; J44.0 Chronic obstructive pulmonary disease with (acute) lower respiratory infection; Z77.22 Contact with and (suspected) exposure to environmental tobacco smoke (acute) (chronic); Z87.891 Personal history of nicotine dependence; Z82.5 Family history of asthma and other chronic lower respiratory diseases; Z80.3 Family history of malignant neoplasm of breast; Z81.1 Family history of alcohol abuse and dependence
CPT/HCPCS: 36415; 71046; 71260; 80048; 80053; 82103; 82104; 82306; 82607; 83605; 83880; 84484; 85025; 93005; 94640; 94760; 99285; A9270-GY; J1956; J2920; J2930; J3370; J7512; Q9967

== ENCOUNTER 2021-08-23 21:56 | Inpatient (IN) ==
[2021-08-23 22:43] LABS: ABS Eosinophils 0.1 10^3/ul (0-0.6); ABS Lymphocytes 1.5 10^3/ul (1.0-4.8); ABS Monocytes 1.4 10^3/ul (0-0.8); ABS Neutrophils 12.4 10^3/ul (1.5-7.7); Eosinophil % 0.4 %; Hematocrit 42 % (35-47); Hemoglobin 13.8 g/dL (12.0-16.0); INR 1.11 (0.86-1.15); Lymphocyte % 9.9 %; Mean Corpuscular HGB Conc 33 g/dL (31-36); Mean Corpuscular Hemoglobin 29 pg (27-31); Mean Corpuscular Volume 88 fL (80-97); Mean Platelet Volume 6.5 fL (7.4-10.4); Platelet Count 304 10^3/uL (150-450); Red Blood Count 4.71 10^6 /uL (3.70-4.87); Red Cell Distribution Width 14 % (10-15); White Blood Count 15.4 10^3/uL (3.5-10.8)
[2021-08-23 23:15] LABS: Albumin 4.1 g/dL (3.2-5.2); Calcium 9.4 mg/dL (8.6-10.3); Total Bilirubin 0.9 mg/dL (0.2-1.0)
[2021-08-23 23:21] LABS: Albumin/Globulin Ratio 1.6 (1-3); Globulin 2.5 g/dL (2-4); Total Protein 6.6 g/dL (6.4-8.9); eGFR CKD-EPI 79.5 (>60)
[2021-08-24 00:02] LABS: High Sensitivity Troponin 1 Hr 3 pg/mL (<15)
[2021-08-24] MEDS ORDERED: Albuterol/Ipratropium NEB.SOL (2.5/0.5 MG) 3 ML NEB.SOLN INH ONE ×2 (01:06→03:53)
[2021-08-24] MEDS ORDERED: Iohexol 350 (CONTRAST) 500 ML MDV IV ONE (01:17)
[2021-08-24] MEDS ORDERED: Lactated Ringers 1000 ml BAG 1,000 ML IV ONE (02:56)
[2021-08-24] MEDS ORDERED: Amoxicillin/Clavul 875/125 TAB (Augmentin 875 tab) PO ONE (03:51)
[2021-08-24] MEDS ORDERED: Albuterol/Ipratropium NEB.SOL (2.5/0.5 MG) 3 ML NEB.SOLN INH PRN (08:08)
[2021-08-24] MEDS ORDERED: Al Hydrox/Mg Hydrox/Simet LIQ 30 ML UDC PO PRN (08:11)
[2021-08-24] MEDS ORDERED: NS 0.9% 1000 ml BAG 1,000 ML IV SCH (08:15)
[2021-08-24] MEDS ORDERED: Piperacillin/Tazobac ADVAN 3.375 GM in NS 0.9% 100 ml BAG 100 ML IV ONE (08:26)
[2021-08-24] MEDS ORDERED: Budesonide NEB 0.5 MG/2 ML NEB.SOLN INH SCH (09:00)
[2021-08-24] MEDS ORDERED: Zosyn per Pharmacy NOTE FOLLOW UP SCH (09:00)
[2021-08-24] MEDS ORDERED: Arformoterol (NF) 15 MCG/2 ML NEB.SOLN INH SCH (09:00)
[2021-08-24] MEDS: methylPREDNISolone SOD 40 mg/ml 1 ml VIAL IV SCH ×2 (09:23→16:56)
[2021-08-24] MEDS: Enoxaparin 40 MG/0.4 ML SYR SUBCUT SCH (09:23)
[2021-08-24] MEDS: Albuterol HFA INHALER 8 gm MDI INH SCH ×3 (09:24→20:32)
[2021-08-24] MEDS: Mometasone/Formoter 200/5 MDI INH SCH ×2 (09:55→20:31)
[2021-08-24] MEDS: Cholecalciferol (VIT D3) 1,000 unit TAB PO SCH (09:56)
[2021-08-24 10:29] LABS: C Reactive Protein 6.71 mg/L (<8.01)
[2021-08-24] MEDS: Acetylcysteine INHALATION SOL 200 MG/ML NEB.SOLN 10 ML INH SCH ×3 (12:08→20:41)
[2021-08-24] MEDS: ZOSYN 3.375 GM Q8H per EXTENDED INFUSION IV SCH ×2 (17:04→22:32)
[2021-08-25] MEDS: methylPREDNISolone SOD 40 mg/ml 1 ml VIAL IV SCH ×3 (02:45→17:14)
[2021-08-25] MEDS: ZOSYN 3.375 GM Q8H per EXTENDED INFUSION IV SCH ×3 (06:02→20:45)
[2021-08-25 07:17] LABS: ABS Lymphocytes 1.3 10^3/ul (1.0-4.8); Hematocrit 35 % (35-47); Hemoglobin 11.9 g/dL (12.0-16.0); Lymphocyte % 9.8 %; Mean Corpuscular HGB Conc 34 g/dL (31-36); Mean Corpuscular Hemoglobin 29 pg (27-31); Mean Corpuscular Volume 86 fL (80-97); Mean Platelet Volume 6.8 fL (7.4-10.4); Platelet Count 299 10^3/uL (150-450); Red Blood Count 4.07 10^6 /uL (3.70-4.87); Red Cell Distribution Width 14 % (10-15); White Blood Count 13.3 10^3/uL (3.5-10.8)
[2021-08-25] MEDS: Albuterol HFA INHALER 8 gm MDI INH SCH ×3 (07:40→19:26)
[2021-08-25] MEDS: Mometasone/Formoter 200/5 MDI INH SCH ×2 (07:40→19:26)
[2021-08-25] MEDS: Acetylcysteine INHALATION SOL 200 MG/ML NEB.SOLN 10 ML INH SCH ×2 (07:41→19:26)
[2021-08-25] MEDS: Enoxaparin 40 MG/0.4 ML SYR SUBCUT SCH (10:41)
[2021-08-25] MEDS: Cholecalciferol (VIT D3) 1,000 unit TAB PO SCH (10:41)
[2021-08-26] MEDS: methylPREDNISolone SOD 40 mg/ml 1 ml VIAL IV SCH ×3 (01:27→17:37)
[2021-08-26 05:09] LABS: ABS Lymphocytes 1.2 10^3/ul (1.0-4.8); ABS Monocytes 0.5 10^3/ul (0-0.8); ABS Neutrophils 12.4 10^3/ul (1.5-7.7); Hematocrit 37 % (35-47); Hemoglobin 12.5 g/dL (12.0-16.0); Lymphocyte % 8.6 %; Mean Corpuscular HGB Conc 34 g/dL (31-36); Mean Corpuscular Hemoglobin 29 pg (27-31); Mean Corpuscular Volume 86 fL (80-97); Mean Platelet Volume 6.4 fL (7.4-10.4); Platelet Count 349 10^3/uL (150-450); Red Blood Count 4.32 10^6 /uL (3.70-4.87); Red Cell Distribution Width 14 % (10-15); White Blood Count 14.1 10^3/uL (3.5-10.8)
[2021-08-26] MEDS: ZOSYN 3.375 GM Q8H per EXTENDED INFUSION IV SCH ×3 (05:33→22:05)
[2021-08-26 05:37] LABS: Calcium 9.4 mg/dL (8.6-10.3); Potassium 4.8 mmol/L (3.5-5.0)
[2021-08-26 05:43] LABS: eGFR CKD-EPI 87.8 (>60)
[2021-08-26] MEDS: Mometasone/Formoter 200/5 MDI INH SCH ×2 (07:58→19:54)
[2021-08-26] MEDS: Acetylcysteine INHALATION SOL 200 MG/ML NEB.SOLN 10 ML INH SCH ×2 (07:59→20:29)
[2021-08-26] MEDS: Albuterol HFA INHALER 8 gm MDI INH SCH ×3 (07:59→19:55)
[2021-08-26] MEDS: Cholecalciferol (VIT D3) 1,000 unit TAB PO SCH (09:56)
[2021-08-26] MEDS: Enoxaparin 40 MG/0.4 ML SYR SUBCUT SCH (09:57)
[2021-08-26] MEDS ORDERED: Albuterol/Ipratropium NEB.SOL (2.5/0.5 MG) 3 ML NEB.SOLN INH ONE (13:32)
[2021-08-26] MEDS ORDERED: Albuterol/Ipratropium NEB.SOL (2.5/0.5 MG) 3 ML NEB.SOLN ONE (13:36)
[2021-08-26] MEDS ORDERED: Naloxone 0.4 mg VIAL 0.4 mg/ml 1 ml VIAL IV PRN (14:06)
[2021-08-26] MEDS ORDERED: DiMENhydriNATE IV 50 mg/ml 1 ml VIAL IV PUSH PRN (14:06)
[2021-08-26] MEDS ORDERED: oxyCODONE/Acetamin 5/325 mg TAB PO PRN (14:06)
[2021-08-26] MEDS ORDERED: fentaNYL 100 mcg/2 ml 50 MCG/ML VIAL IV PRN (14:06)
[2021-08-26] MEDS: Acetylcysteine INH SOL (RT) 200 MG/ML 4 ML VIAL INH SCH (19:53)
[2021-08-27] MEDS: methylPREDNISolone SOD 40 mg/ml 1 ml VIAL IV SCH ×3 (00:46→17:14)
[2021-08-27] MEDS: ZOSYN 3.375 GM Q8H per EXTENDED INFUSION IV SCH ×3 (05:17→21:57)
[2021-08-27 06:03] LABS: Hematocrit 39 % (35-47); Mean Corpuscular HGB Conc 34 g/dL (31-36); Mean Corpuscular Hemoglobin 29 pg (27-31); Mean Corpuscular Volume 86 fL (80-97); Mean Platelet Volume 6.4 fL (7.4-10.4); Platelet Count 388 10^3/uL (150-450); Red Blood Count 4.48 10^6 /uL (3.70-4.87); Red Cell Distribution Width 14 % (10-15); White Blood Count 16.1 10^3/uL (3.5-10.8)
[2021-08-27 06:06] LABS: ABS Lymphocytes 1.3 10^3/ul (1.0-4.8); ABS Monocytes 0.9 10^3/ul (0-0.8); ABS Neutrophils 13.9 10^3/ul (1.5-7.7); Lymphocyte % 7.9 %
[2021-08-27 06:27] LABS: Calcium 9.3 mg/dL (8.6-10.3); Potassium 4.7 mmol/L (3.5-5.0); eGFR CKD-EPI 90.5 (>60)
[2021-08-27] MEDS: Mometasone/Formoter 200/5 MDI INH SCH ×2 (07:05→18:54)
[2021-08-27] MEDS: Albuterol HFA INHALER 8 gm MDI INH SCH ×4 (07:05→19:24)
[2021-08-27] MEDS: Acetylcysteine INH SOL (RT) 200 MG/ML 4 ML VIAL INH SCH ×2 (07:06→18:53)
[2021-08-27] MEDS: Cholecalciferol (VIT D3) 1,000 unit TAB PO SCH (08:01)
[2021-08-27] MEDS: Enoxaparin 40 MG/0.4 ML SYR SUBCUT SCH (08:01)
[2021-08-28] MEDS: ZOSYN 3.375 GM Q8H per EXTENDED INFUSION IV SCH (05:08)
[2021-08-28 05:47] LABS: Hematocrit 38 % (35-47); Hemoglobin 12.7 g/dL (12.0-16.0); Mean Corpuscular HGB Conc 33 g/dL (31-36); Mean Corpuscular Hemoglobin 29 pg (27-31); Mean Corpuscular Volume 87 fL (80-97); Mean Platelet Volume 6.4 fL (7.4-10.4); Platelet Count 358 10^3/uL (150-450); Red Blood Count 4.41 10^6 /uL (3.70-4.87); Red Cell Distribution Width 14 % (10-15); White Blood Count 12.7 10^3/uL (3.5-10.8)
[2021-08-28 06:18] LABS: Calcium 9.2 mg/dL (8.6-10.3); eGFR CKD-EPI 77.4 (>60)
[2021-08-28 06:28] LABS: Potassium 5.1 mmol/L (3.5-5.0)
[2021-08-28] MEDS: Acetylcysteine INH SOL (RT) 200 MG/ML 4 ML VIAL INH SCH (08:01)
[2021-08-28] MEDS: Mometasone/Formoter 200/5 MDI INH SCH (08:03)
[2021-08-28] MEDS: Albuterol HFA INHALER 8 gm MDI INH SCH ×2 (08:03→14:16)
[2021-08-28 08:26] LABS: ABS Lymphocytes 2.3 10^3/ul (1.0-4.8); ABS Neutrophils 9.4 10^3/ul (1.5-7.7); Eosinophil % 0.1 %; Lymphocyte % 17.9 %
[2021-08-28] MEDS: Enoxaparin 40 MG/0.4 ML SYR SUBCUT SCH (09:03)
[2021-08-28] MEDS: Cholecalciferol (VIT D3) 1,000 unit TAB PO SCH (09:03)
[2021-08-28 11:50] VITALS: BP 138/80
== END 2021-08-28 14:00 | disposition home or self-care (01) | DRG 140 ==
LOC: EDHOLD 21:56 → ED 21:56 → EDHOLD 08-24 15:58 → MED 08-24 16:28 → AA 08-26 10:50 → MED 08-26 11:04
PROVIDERS: ADMIT Internal Medicine; ATTEND Hospitalist